=== PATIENT | male | born 1985 | race Caucasian/White ===

== ENCOUNTER 2022-08-08 03:12 | Emergency (ER) | payer MEDICAID, SELFPAY ==
--- NOTE | ~2022-08-08 | CT_ITS ---
EXAMINATION: CT ABDOMEN AND PELVIS WITHOUT CONTRAST CLINICAL INFORMATION: Left-sided pain. Question stone. COMPARISON: 12/10/2018 TECHNIQUE: Multidetector volumetric imaging was performed from the superior aspect of the liver through the pubic symphysis. Sagittal and coronal reformatted images were obtained on the technologist's workstation. This CT examination was performed using dose optimization techniques as appropriate, variously including the following: *Automated exposure control *Adjustment of mA and/or kV according to patient size (this includes techniques or standardized protocols for targeted exams where dose is matched to indication/reason for exam; i.e. extremities or head) *Use of iterative reconstruction technique DLP: 535 mGy-cm FINDINGS: LUNG BASES: The visualized lung bases are unremarkable. LIVER, GALLBLADDER, AND BILIARY TREE: The liver is normal in size, shape, and attenuation. No focal hepatic lesion or biliary ductal dilatation is present. The gallbladder is unremarkable with no evidence of radiopaque gallstones, gallbladder wall thickening, or obvious pericholecystic inflammatory changes. PANCREAS: Unremarkable. SPLEEN: Unremarkable. ADRENAL GLANDS: Unremarkable. KIDNEYS AND URETERS: The kidneys are normal in size, shape, and attenuation. Minimal left hydroureter. No significant hydronephrosis. A punctate 1 mm calculus is present within an upper pole calyx of the right kidney. No perinephric stranding. BLADDER: There is a 3 mm calculus at the left ureterovesical junction. Bladder is otherwise unremarkable GASTROINTESTINAL TRACT: Stomach, small bowel, and colon are normal in caliber. No bowel wall thickening or surrounding inflammatory changes. Intramural fat deposition is seen within multiple segments of the colon small bowel. This appearance is not specific and often asymptomatic, though can be associated with chronic changes of inflammation. Appendix is normal. No intraperitoneal free fluid or free air. ABDOMINAL WALL: No significant hernia is appreciated. LYMPH NODES: There are numerous subcentimeter mesenteric lymph nodes in the central abdomen and right lower quadrant, measuring up to 9 mm in diameter. No significant retroperitoneal adenopathy. VASCULAR: Unremarkable. PELVIC VISCERA: The prostate and seminal vesicles are unremarkable. OSSEOUS STRUCTURES: Mild degenerative disc disease in the lower lumbar spine. No acute osseous findings. CT/CT abdomen pelvis wo IV con IMPRESSION: A 3 mm calculus at the left ureterovesical junction produces mild left hydroureter. Fleischner guidelines were followed.
[2022-08-08 03:18] VITALS: BP 112/70; BP 126/77; PULSE 61; PULSE 70; RESP 16; TEMP 36.4; O2SAT 98; O2SAT 99; BMI 25.0
[2022-08-08 03:30] LABS: Hematocrit 46.5 % (42.0-52.0); Hemoglobin 14.9 g/dl (14.0-18.0); Mean Corpuscular Hemoglobin 24.9 pg (27.0-33.0); Mean Corpuscular Volume 77.8 fL (80.0-98.0); Mean Platelet Volume 8.4 fL (9.4-12.4); Platelet Count 293 X10*3/uL (160-400); Red Blood Count 5.98 X10*6/uL (4.60-5.80); Red Cell Distribution Width 13.8 % (11.0-16.0); White Blood Count 11.5 X10*3/uL (4.8-10.8)
--- NOTE | 2022-08-08 03:43 | ED.ABDPAIN ---
HPI - Abdominal Pain General Chief Complaint: Abdominal Pain Stated Complaint: abd pain Time Seen by Provider: 08/08/22 03:43 Source: patient Mode of arrival: ambulatory Limitations: no limitations History of Present Illness HPI narrative: Patient is 87 years old with no significant past medical history noticed sudden onset of pain in left upper quadrant just prior to arrival woke him up from the sleep associated with nausea no vomiting family history of kidney stone in the father patient never had kidney stone no urinary complaints no fever no chills Related Data Previous Rx's Medication Instructions Recorded oxycodone 5 mg tablet 5 mg PO Q6H PRN pain #20 tabs 08/08/22 tamsulosin 0.4 mg capsule (Flomax) 0.4 mg PO BEDTIME #7 caps 08/08/22 Allergies Allergy/AdvReac Type Severity Reaction Status Date / Time No Known Allergies Allergy Unverified 06/07/20 16:13 [No Known Allergies*] Review of Systems Review of Systems Yes all other systems are reviewed and are negative [facility] Social History Social History Smoked in Last 30 Days: No Use of substances other than those prescribed or required for medical reasons: No Advance Directives: No Advance Directives Information Provided: Yes Physical Exam ED Vital Signs: Vital Signs - 24 hr 08/08/22 03:18 08/08/22 03:46 08/08/22 06:14 Temperature 97.6 F 98.7 F 98.7 F Pulse Rate 61 58 61 Respiratory Rate 16 18 18 Blood Pressure 126/77 103/70 116/71 Pulse Oximetry 98 96 96 Oxygen Delivery Method Room Air Room Air BMI result Body Mass Index 25.0 Appearance: Alert. Oriented X3. No acute distress. Eyes: PERRLA, No Nystagmus ENT: Pharynx normal. Oral Mucosa moist Neck: Normal inspection. Neck supple. CVS: Normal heart rate and rhythm. Pulses normal. Respiratory: No respiratory distress. Equal air entry bilateral, no wheezing/rales/rhonchi Abdomen: Soft , dependence the left upper quadrant no rebound tenderness or guarding Bowel sounds are present, no mass palpable, no CVA tenderness Skin: Skin warm and dry. Normal skin color. Normal skin turgor. Extremities: No lower extremity edema. No calf tenderness Neuro: Oriented X 3. No motor deficit. Medications Administered Discontinued Medications Generic Name Dose Route Start Last Admin Trade Name Oxana PRN Reason Stop Dose Admin Sodium Chloride 1,000 mls @ 999 mls/hr 08/08/22 04:02 08/08/22 05:48 Ns IV 08/08/22 05:02 Infused .Q1H1M ONE Infusion Sodium Chloride 1,000 mls @ 999 mls/hr 08/08/22 05:35 08/08/22 05:47 Ns IV 08/08/22 06:35 999 mls/hr .Q1H1M ONE Administration Ketorolac Tromethamine 30 mg 08/08/22 04:02 08/08/22 04:14 Ketorolac Tromethamine 30 Mg/Ml Vial IVPUSH 08/08/22 04:03 30 mg ONCE ONE Administration Morphine Sulfate 4 mg 08/08/22 05:35 08/08/22 05:48 Morphine Sulfate 4 Mg/Ml Cartridge IVPUSH 08/08/22 05:36 4 mg ONCE ONE Administration Protocol Ondansetron HCl 4 mg 08/08/22 04:02 08/08/22 04:15 Ondansetron Hcl 4 Mg/2 Ml Vial IVPUSH 08/08/22 04:03 4 mg ONCE ONE Administration Tamsulosin HCl 0.4 mg 08/08/22 05:35 08/08/22 05:48 Tamsulosin Hcl 0.4 Mg Capsule PO 08/08/22 05:36 0.4 mg ONCE ONE Administration MDM - Abdominal Pain MDM Narrative Medical decision making narrative: Patient left upper quadrant pain with family history of kidney stones sudden onset sharp in nature with nausea likely kidney stone will get CT abdomen rule out obstructive kidney stone Patient's CT scan showed: 3 mm calculus at the left ureterovesical junction produces mild left hydroureter Patient still having pain will give IV morphine Flomax and another L bolus Differential Diagnosis Differential diagnosis: Likely calculus of kidney Lab Data Result diagrams: 08/08/22 03:25 08/08/22 03:25 Labs: Lab Results 08/08/22 08/08/22 Range/Units 03:25 03:25 WBC 11.5 H (4.8-10.8) X10*3/uL RBC 5.98 H (4.60-5.80) X10*6/uL Hgb 14.9 (14.0-18.0) g/dl Hct 46.5 (42.0-52.0) % MCV 77.8 L (80.0-98.0) fL MCH 24.9 L (27.0-33.0) pg MCHC 32.0 (31.0-36.0) g/dl RDW 13.8 (11.0-16.0) % Plt Count 293 (160-400) X10*3/uL MPV 8.4 L (9.4-12.4) fL Absolute Nucleated RBC 0.000 (0.0-0.012) X10*3/uL Nucleated RBC % (auto) 0.0 (0.0-0.2) /100WBC Sodium 140 (135-145) mmol/L Potassium 4.0 (3.3-5.1) mmol/L Chloride 101 (96-108) mmol/L Carbon Dioxide 25 (22-29) mmol/L Anion Gap 18 (12-20) BUN 15 (9-16) mg/dL Creatinine 1.10 (0.5-1.4) mg/dL Estim Creat Clear Calc 98.8 Estimated GFR > 60 Random Glucose 131 H (60-115) mg/dL Calcium 9.3 (8.4-10.2) mg/dL Total Bilirubin 0.6 (0.0-1.0) mg/dL Direct Bilirubin 0.2 (0.0-0.5) mg/dL AST 18 (5-37) U/L ALT 29 (0-40) U/L Alkaline Phosphatase 168 H (39-117) U/L Total Protein 7.2 (6.5-8.0) g/dL Albumin 4.5 (3.5-5.0) g/dL Lipase 27 (8-78) U/L Discharge Plan Discharge Clinical Impression: Calculus of kidney Patient Disposition: Home, Self-Care Instructions: Kidney Stones (ED) Additional Instructions: Drink plenty of fluids Pain medication advised Flomax daily til you have pain Follow-up with urologist/PCP Prescriptions: New oxycodone 5 mg tablet 5 mg PO Q6H PRN (Reason: pain) Qty: 20 0RF Rx Instructions: Partial Fill upon patient request. tamsulosin [Flomax] 0.4 mg capsule 0.4 mg PO BEDTIME Qty: 7 0RF Referrals: Joss Rodriguez MD [Physician] - 3 days
[2022-08-08 03:46] VITALS: BP 103/70; PULSE 58; RESP 18; TEMP 37.1; O2SAT 96
[2022-08-08 03:58] LABS: Alanine Aminotransferase 29 U/L (0-40); Albumin Level 4.5 g/dL (3.5-5.0); Alkaline Phosphatase 168 U/L (39-117); Anion Gap 18 (12-20); Aspartate Amino Transferase 18 U/L (5-37); Bilirubin Direct 0.2 mg/dL (0.0-0.5); Bilirubin Total 0.6 mg/dL (0.0-1.0); Blood Urea Nitrogen 15 mg/dL (9-16); Calcium 9.3 mg/dL (8.4-10.2); Carbon Dioxide 25 mmol/L (22-29); Chloride 101 mmol/L (96-108); Creatinine Clr Calc Pharmacy 98.8; Estimated Glomerular Filt Rate > 60; Glucose Random 131 mg/dL (60-115); Sodium 140 mmol/L (135-145); Total Protein 7.2 g/dL (6.5-8.0)
[2022-08-08 04:06] LABS: Lipase 27 U/L (8-78)
[2022-08-08] MEDS: 0.9 % Sodium Chloride 1,000 ML 999 ML IV ×2 (04:14→05:47)
[2022-08-08] MEDS: Ketorolac Tromethamine 30 MG/ML VIAL IVPUSH (04:14)
[2022-08-08] MEDS: ondansetron HCL 4 MG/2 ML VIAL IVPUSH (04:15)
[2022-08-08] MEDS: Morphine Sulfate 4 MG/ML CARTRIDGE IVPUSH (05:48)
[2022-08-08] MEDS: Tamsulosin HCL 0.4 MG CAPSULE PO (05:48)
[2022-08-08 06:14] VITALS: BP 116/71; PULSE 61; RESP 18; TEMP 37.1; O2SAT 96
[2022-08-08] MEDS: oxyCODONE HCl Immed Release 5 MG TABLET 10 MG PO (06:52)
[2022-08-08 07:00] VITALS: BP 101/66; PULSE 63; RESP 14; TEMP 36.6; O2SAT 98
[2022-08-08 07:21] LABS: Appearance Urine Turbid; Color Urine Orange; Glucose Urine UA Negative (Negative); Leukocyte Esterase Urine Small (1+) (Negative); Nitrite Urine Negative (Negative); PH 5.5 (5.0-9.0); Specific Gravity - Urine >= 1.030 (1.005-1.025); UMIC TRIGGER UACC YES; Urine Blood Large (3+) (Negative); Urine Ketones 80 mg/dL (Negative); Urine Protein 100 (2+) mg/dL (Neg-Trace)
[2022-08-08 07:31] LABS: Bacteria Urine Trace (None Seen); Hyaline Casts Urine 0-2 /LPF (0-2); RBC Urine >20 /HPF (0-2); UACC Culture Trigger YES
== END 2022-08-08 07:23 | disposition home or self-care (01) ==
PROVIDERS: Emergency Provider Internal Medicine
DX: N20.0 Calculus of kidney (principal); R10.12 Left upper quadrant pain; Z79.899 Other long term (current) drug therapy
CPT/HCPCS: 36415; 74176; 80048; 80076; 81001; 83690; 85027; 87086; 96361; 96374; 96375; 99284; 99285; J1885; J2270; J2405

== ENCOUNTER 2024-07-28 09:21 | Outpatient (REF) | payer MEDICAID, SELFPAY ==
[2024-07-28 11:21] LABS: MANUAL DIFF FLAG NO
[2024-07-28 11:34] LABS: Basophils Absolute Auto 0.1 X10*3/uL (0.0-0.2); Basophils Percent Auto 1.5 % (0-2); Eosinophils Absolute Auto 0.2 X10*3/uL (0.0-0.4); Eosinophils Percent Auto 2.9 % (0-4); Hematocrit 46.6 % (42.0-52.0); Hemoglobin 14.8 g/dl (14.0-18.0); Imm Gran Abs Auto 0.01 X10*3/uL (0.00-0.03); Imm Gran Pct Auto 0.1 % (0.0-0.4); Lymphocytes Absolute Auto 3.2 X10*3/uL (1.2-4.9); Lymphocytes Percent Auto 45.8 % (20-40); Mean Corpuscular HGB Conc 31.8 g/dl (31.0-36.0); Mean Corpuscular Hemoglobin 25.4 pg (27.0-33.0); Mean Corpuscular Volume 80.1 fL (80.0-98.0); Mean Platelet Volume 9.7 fL (9.4-12.4); Monocytes Absolute Auto 0.5 X10*3/uL (0.1-1.2); Monocytes Percent Auto 7.3 % (2-11); Neutrophils Absolute Auto 2.9 x10*3/uL (2.0-8.3); Neutrophils Percent Auto 42.4 % (45-73); Platelet Count 307 X10*3/uL (160-400); Red Blood Count 5.82 X10*6/uL (4.60-5.80); Red Cell Distribution Width 13.8 % (11.0-16.0); White Blood Count 6.9 X10*3/uL (4.8-10.8)
[2024-07-28 12:02] LABS: Alanine Aminotransferase 74 U/L (0-40); Albumin Level 4.3 g/dL (3.5-5.0); Alkaline Phosphatase 126 U/L (39-117); Anion Gap 15 (12-20); Aspartate Amino Transferase 31 U/L (5-37); Bilirubin Total 0.4 mg/dL (0.0-1.0); Blood Urea Nitrogen 17 mg/dL (9-16); Calcium 9.7 mg/dL (8.4-10.2); Carbon Dioxide 25 mmol/L (22-29); Chloride 105 mmol/L (96-108); Cholesterol 175 mg/dL (<200); Estimated Glomerular Filt Rate > 60; Glucose Random 124 mg/dL (60-115); HDL Cholesterol 34 mg/dL (>40); LDL Cholesterol Calculated 112 mg/dL (<100); Potassium 3.8 mmol/L (3.3-5.1); Sodium 141 mmol/L (135-145); Total Protein 7.1 g/dL (6.5-8.0); Triglycerides 145 mg/dL (<150)
[2024-07-28 12:03] LABS: HBS Num1 419.26 mIU/mL (0-7.99); HBc Num1 0.08 S/CO (0.00-0.79); HBsAGNum1 0.31 S/CO (0.00-0.99); HIV AB/AG Nonreactive (Nonreactive); HIV Num 1 0.07 S/CO (0.00-0.99); Hepatitis A Antibody IgM 0.18 Index (0-0.79); Hepatitis B Core Antibody Nonreactive (Nonreactive); Hepatitis B Surface Antigen Negative (Negative); ~HepC Num1 0.07 S/CO (0.00-0.79); ~Hepatitis A Antibody IgM Nonreactive (Nonreactive); ~Hepatitis B Surface Antibody REACTIVE (Nonreactive); ~Hepatitis C Antibody Nonreactive (Nonreactive)
[2024-07-28 12:10] LABS: Syphilis Screen Nonreactive (Nonreactive)
[2024-07-28 12:23] LABS: TSH reflex Free T4 2.26 uIU/mL (0.32-4.0)
[2024-07-28 13:54] LABS: Reflex LDLD? No
== END 2024-07-28 09:22 | disposition home or self-care (01) ==
LOC: HO.HHCL 09:21
PROVIDERS: Visit Provider Internal Medicine
DX: E66.3 Overweight (principal); J45.20 Mild intermittent asthma, uncomplicated; Z11.3 Encounter for screening for infections with a predominantly sexual mode of transmission
CPT/HCPCS: 36415; 80053; 80061; 84443; 85025; 86704; 86706; 86709; 86780; 86803; 87340; 87389

== ENCOUNTER 2025-06-04 12:56 | Observation (INO) | payer MEDICAID, SELFPAY ==
[2025-06-04] VITALS (10 sets, daily range): BP systolic 101–127; BP diastolic 61–83; PULSE 72–103; RESP 14–24; TEMP 36.1–37.1; O2SAT 96–100; BMI 23.8
--- NOTE | ~2025-06-04 | CT_ITS ---
CLINICAL HISTORY: right flank pain hx stones CT abdomen and pelvis without contrast Comparison: CT/REG/SR - CT ABDOMEN PELVIS WITHOUT IV CONTRAST - 08/08/22 04:30 EST Findings: The lung bases are clear. Gynecomastia. Right hydronephrosis and proximal right hydroureter with proximal right ureter obstructing nephrolith, 0.3 cm, axial image number 58 of 119. No bowel obstruction, pneumoperitoneum, or pneumatosis. The prostate is within normal limits. The appendix is within normal limits. No acute fracture. Mild osteopenia. IMPRESSION: 1. Right hydronephrosis and proximal right hydroureter with obstructing 0.3 cm in the proximal right ureteral nephrolith. 2. Gynecomastia. This document has been electronically signed by: Barron Smith MD on 06/04/2025 16:20:04
--- NOTE | ~2025-06-04 | FL_ITS ---
EXAMINATION: FL GUIDANCE ONLY HISTORY: STENT RIGHT COMPARISON: Correlation is made with a CT of the abdomen and pelvis without contrast dated 06/04/2025. TECHNIQUE: Fluoroscopy time: 0.7 minutes. Cumulative Dose: 8.64 mGy. DAP: 2.35 mGym2 Images: 6. FINDINGS: Fluoroscopic spot films of the right abdomen demonstrate placement of a nephroureteral stent. FL/FL guidance in OR IMPRESSION: Fluoroscopy during procedure. Please see procedure report for additional information. Electronically signed by: Pino Thompson MD 06/06/2025 07:01 AM EDT
--- NOTE | 2025-06-04 13:03 | ED_ITS ---
HPI - General Adult General Chief complaint: Abdominal Pain Stated complaint: Kidney stones? Time Seen by Provider: 06/04/25 14:03 Source: patient Mode of arrival: ambulatory Limitations: no limitations History of Present Illness ED Provider: JOVANNA COOK PA-C HPI narrative: 40 yo M with PMH of nephrolithiasis (2021) presents to ED today for evaluation of epigastric abdominal pain on waking this morning. Reports being ill with flu-like symptoms x2-3 weeks and as a result, has had decreased PO intake. Reports eating soup prior to bed last night. Woke up with sharp pain to epigatric region wrapping around to his right flank. Admits to associated nausea, vomiting with bilious emesis, subjective fever, chills, and malaise. Denies chest pain, urinary sx, blood in emesis or stool. He has not trialed any OTC pain meds. Admits to history of renal stones approx 1 year ago and states this feels similar. He did not require lithotripsy or stent placement. He has not followed up with urology outpatient since. Denies etoh consumption. Denies history of abdominal surgeries. Related Data Previous Rx's ?Medication ?Instructions ?Recorded oxycodone 5 mg tablet 5 mg PO Q6H PRN pain #20 tab s 08/08/22 tamsulosin 0.4 mg capsule (Flomax) 0.4 mg PO BEDTIME # 7 caps 08/08/22 Allergies Allergy/AdvReac Type Severity Reaction Status Date / Time No Known Allergies (No Known Allergy Verified 06/04/25 13:03 Allergies*) Review of Systems 2 Review of Systems: Yes all other systems are reviewed and are negative [facility] Past Medical History Attestation statement: The following information was validated with the patient. Source: old records reviewed and nursing notes reviewed Social History Social History Advance Directives: No Advance Directives Information Provided: No Physical Exam ED Vital Signs: Vital Signs - 24 hr 06/04/25 13:01 06/04/25 14:25 06/04/25 17:16 Temperature 97.0 F Pulse Rate 103 H 96 81 Respiratory Rate 18 24 H 19 Blood Pressure 119/69 114/65 116/67 Pulse Oximetry 96 100 100 Oxygen Delivery Method Room Air Room Air Room Air Oxygen Flow Rate 06/04/25 17:35 06/04/25 17:38 06/04/25 17:39 Temperature 98.7 F Pulse Rate 73 83 Respiratory Rate 17 17 14 Blood Pressure 127/81 127/81 Pulse Oximetry 96 Oxygen Delivery Method Nasal Cannula Oxygen Flow Rate 2 BMI result Body Mass Index 23.8 tachycardic, afebrile General: uncomfortable appearing, curled up in a ball on the stretcher, bag of bilious emesis noted on bed Skin: Warm, dry, intact. No rashes or lesions. Head: Normocephalic, atraumatic. EENT: Hearing is intact b/l. Conjunctiva clear. Sclera is anicteric. PERRLA. EOM intact. Moist mucous membranes.? Neck: Supple without LAD Cardiac: Chest wall symmetric. RRR Lungs: Normal respiratory effort without accessory muscle use. CTA bilaterally Abdomen: soft, ND, ttp of epigastric region/RUQ. no rebound/guarding. no cvat. active bs x4. Back: No midline spinous or paraspinal tenderness. No step off deformity. Ext: Upper and lower extremities atraumatic, without tenderness, deformity, swelling or erythema Course Course Course Narrative: Rapid medical examination performed in triage by Kelly Florian PA-C. Patient is a 40 year old assigned male at presenting to the emergency department with right sided flank pain. Patient states he has a history of stones and this feels like it may be that. Detailed physical exam and review of systems are deferred to the primary school principal. Labs ordered. Patient placed back in the waiting room pending room availability and results. Reevaluation(s) Reevaluation #1: 1529 -- CBC showing leukocytosis to 11.5 without left shift. H&H stable. Chemistry without acute electrolyte abnormality requiring intervention. No KARINE. Glucose 150, no anion gap. Liver function appears to be around patient's baseline. Lipase WNL at 25. > UA and CT a/p pending > medicated with toradol, morphine, zofran, and IVF > stable at this time 1713 -- patient continues to endorse 8/10 pain. Will trial morphine. > CT abdomen/pelvis shows right hydronephrosis and proximal right hydroureter with obstructing 3 mm stone to proximal right ureter > UA is infected - ceftriaxone ordered. > will discuss with urology. I anticipate admission to medicine if patient's pain continues to be poorly controlled. [id number] -- patient now requiring dilaudid for pain control. no further recommendations per urology. will reach out to hospitalist for admission. patient/ mother who is at bedside are agreeable. Medications Administered Discontinued Medications Generic Name Dose Route Start Last Admin Trade Name Freq PRN Reason Stop Dose Admin Ceftriaxone Sodium 1 gm 06/04/25 16:42 06/04/25 17:15 Ceftriaxone Sodium 1 Gm Vial IVPUSH 06/04/25 16:43 1 gm ONCE ONE Administration Hydromorphone HCl 1 mg 06/04/25 17:29 06/04/25 17:35 Hydromorphone Hcl 1 Mg/Ml Syringe IVPUSH 06/04/25 17:30 1 mg ONCE ONE Administration Protocol Sodium Chloride 1,000 mls @ 999 mls/hr 06/04/25 14:15 06/04/25 15:32 Ns IV 06/04/25 15:15 Infused .Q1H1M SARAH Infusion Ketorolac Tromethamine 30 mg 06/04/25 14:12 06/04/25 14:23 Ketorolac Tromethamine 30 Mg/Ml Vial IVPUSH 06/04/25 14:13 30 mg ONCE ONE Administration Morphine Sulfate 4 mg 06/04/25 14:28 06/04/25 14:34 Morphine Sulfate 4 Mg/Ml Cartridge IVPUSH 06/04/25 14:29 4 mg ONCE ONE Administration Protocol Morphine Sulfate 4 mg 06/04/25 16:56 06/04/25 17:04 Morphine Sulfate 4 Mg/Ml Cartridge IVPUSH 06/04/25 16:57 4 mg ONCE ONE Administration Protocol Ondansetron HCl 4 mg 06/04/25 14:12 06/04/25 14:23 Ondansetron Hcl 4 Mg/2 Ml Vial IVPUSH 06/04/25 14:13 4 mg ONCE ONE Administration Medical Decision Making Medical Decision Making MDM Narrative: 40 yo M with PMH of nephrolithiasis (2021) presents to ED today for evaluation of epigastric abdominal pain on waking this morning. on arrival patient is tachycardic, afebrile. he is uncomfortable appearing, curled up in a ball on the stretcher. on exam, abdomen is soft, ND, ttp of epigastric region/RUQ. no rebound/guarding. no cvat. active bs x4. Differential diagnosis includes biliary colic, renal colic, nephrolithiasis, gastroenteritis, gastritis, PUD. Abdominal exam without peritoneal signs. No evidence of acute abdomen at this time. Well appearing. Moderate suspicion for acute hepatobiliary disease (including acute cholecystitis). Less likely to represent acute pancreatitis, perforated ulcer/ GI bleed, acute infectious processes (pneumonia, hepatitis, pyelonephritis), atypical appendicitis, vascular catastrophe, bowel obstruction or viscus perforation. Presentation not consistent with other acute, emergent causes of abdominal pain at this time. Plan: labs, UA, pain control, CT, serial reassessment Differential Diagnosis Differential Diagnoses: The differential diagnosis associated with the presentation includes as above Admission/Observation Consideration of admission/observation: Escalation of care including admission/observation considered patient to be admitted to medicine for pain control secondary to proximal ureteral stone + UTI. Consult Healthcare Provider Management of the patient was discussed with: Hospitalist (arlen law) and [employer] Block Setter (dr. thornton urologist) Lab Data MDM Lab Attestation statement: I reviewed the patient's lab results. as above. 06/04/25 13:18 06/04/25 13:18 Labs: Lab Results 06/04/25 06/04/25 Range/Units 13:18 16:34 WBC 11.5 H (4.8-10.8) X10*3/uL RBC 6.17 H (4.60-5.80) X10*6/uL Hgb 15.6 (14.0-18.0) g/dl Hct 46.5 (42.0-52.0) % MCV 75.4 L (80.0-98.0) fL MCH 25.3 L (27.0-33.0) pg MCHC 33.5 (31.0-36.0) g/dl RDW 12.9 (11.0-16.0) % Plt Count 419 H D (160-400) X10*3/uL MPV 8.6 L (9.4-12.4) fL Immature Gran % (Auto) 0.3 (0.0-0.4) % Neut % (Auto) 51.0 (45-73) % Lymph % (Auto) 36.7 (20-40) % [place] % (Auto) 8.4 (2-11) % Eos % (Auto) 2.7 (0-4) % Baso % (Auto) 0.9 (0-2) % Lymph # (Auto) 4.2 (1.2-4.9) X10*3/uL [place] # (Auto) 1.0 (0.1-1.2) X10*3/uL Eos # (Auto) 0.3 (0.0-0.4) X10*3/uL Baso # (Auto) 0.1 (0.0-0.2) X10*3/uL Abs Immat Gran (auto) 0.03 (0.00-0.03) X10*3/uL Absolute Neuts (auto) 5.9 (2.0-8.3) x10*3/uL Absolute Nucleated RBC 0.000 (0.0-0.012) X10*3/uL Nucleated RBC % (auto) 0.0 (0.0-0.2) /100WBC Sodium 139 (135-145) mmol/L Potassium 3.9 (3.3-5.1) mmol/L Chloride 103 (96-108) mmol/L Carbon Dioxide 22 (22-29) mmol/L Anion Gap 18 (12-20) BUN 12 (9-16) mg/dL Creatinine 0.98 (0.5-1.4) mg/dL Estim Creat Clear Calc 107.7 Estimated GFR > 60 Random Glucose 150 H (60-115) mg/dL Calcium 9.6 (8.4-10.2) mg/dL Magnesium 1.9 (1.6-2.6) mg/dL Total Bilirubin 0.7 (0.0-1.0) mg/dL AST 28 (5-37) U/L ALT 19 (0-40) U/L Alkaline Phosphatase 157 H (39-117) U/L Total Protein 7.8 (6.5-8.0) g/dL Albumin 4.6 (3.5-5.0) g/dL Lipase 25 (8-78) U/L Urine Color Other A Urine Appearance Cloudy Urine pH 6.5 (5.0-9.0) Ur Specific [place] >= 1.030 H (1.005-1.025) Urine Protein 300 (3+) H (Neg-Trace) mg/dL Urine Glucose (UA) Negative (Negative) mg/dL Urine Ketones >=80 (Negative) mg/dL Urine Blood Large (3+) H (Negative) Urine Nitrite Positive H (Negative) Ur Leukocyte Esterase Trace H (Negative) Urine RBC >20 H (0-2) /HPF Urine WBC 0-5 (0-5) /HPF Ur Squamous Epith Cells 3-5 (0-2) /HPF Calcium Oxalate Crystal Present Urine Bacteria None Seen (None Seen) Hyaline Casts 11-20 (0-2) /LPF Independent Interpretation I performed an independent interpretation of an: CT Scan Interpretation: ct a/p showing right hydroureter nephrosis Radiology Impression Discussion of test interpretation with radiology: I have reviewed the radiologist's reading. Radiologist Impression: Date of Service: 06/04/25 Procedure(s): CT abdomen pelvis wo IV con Accession Number(s): [id number] cc: [facility]; Jovanna Cook MS~ Report Number: [id number]: Total DLP = 522.00 mGy-cm Reason for Exam: right flank pain hx stones ADDENDUMThis document has been electronically signed by: Barron Smith MD on 06/04/2025 16:20:04 ADDENDUM: This report was discussed with Joey Nugent on Jun 04, 2025 16:30:00 EDT. This document has been electronically signed by: Antonio Wu on 06/04/2025 16:30:56 Addendum Dictated By: Barron Smith MD Addendum Signed By: <Electronically signed by Barron Smith MD in [place]> 06/04/25 1631 Addendum Cosigned By: DD/ TD/TT: 06/04/25 CLINICAL HISTORY: right flank pain hx stones CT abdomen and pelvis without contrast Comparison: CT/REG/SR - CT ABDOMEN PELVIS WITHOUT IV CONTRAST - 08/08/22 04:30 EST Findings: The lung bases are clear. Gynecomastia. Right hydronephrosis and proximal right hydroureter with proximal right ureter obstructing nephrolith, 0.3 cm, axial image number 58 of 119. No bowel obstruction, pneumoperitoneum, or pneumatosis. The prostate is within normal limits. The appendix is within normal limits. No acute fracture. Mild osteopenia. IMPRESSION: 1. Right hydronephrosis and proximal right hydroureter with obstructing 0.3 cm in the proximal right ureteral nephrolith. 2. Gynecomastia. This document has been electronically signed by: Barron Smith MD on 06/04/2025 16:20:04 Independent Historian Clinical information obtained from an independent historian. History obtained from or confirmed by: Parent External Record Review External record reviewed: Inpatient record Prescription Management I considered prescription management with: Pain Medication and Antibiotic Chronic Conditions Patient?s care impacted by: Other (nephrolithiasis) Social Determinants Patient?s care significantly limited by Social Determinants of Health including: Other Social Determinant of Health Critical Care Time Critical Care Time Critical Care Time: Yes Total Critical Care Time: 45 Attestation: Critical care time in the amount of 45 minutes has been provided to the patient in terms of direct patient care, frequent reevaluation on IV morphine and dilaudid, consultation with urology/ hospitalist, review and interpretation of medical data and results, and management of potentially life-threatening conditions. This is all outside of any medical procedures. Discharge Plan Discharge Clinical Impression: Calculus of proximal right ureter, Hydroureteronephrosis, Acute UTI Patient Disposition: Admitted As Inpatient Print Language: Lao
[2025-06-04 13:31] LABS: MANUAL DIFF FLAG NO
[2025-06-04 13:32] LABS: Hematocrit 46.5 % (42.0-52.0); Hemoglobin 15.6 g/dl (14.0-18.0); Imm Gran Abs Auto 0.03 X10*3/uL (0.00-0.03); Imm Gran Pct Auto 0.3 % (0.0-0.4); Lymphocytes Absolute Auto 4.2 X10*3/uL (1.2-4.9); Mean Corpuscular HGB Conc 33.5 g/dl (31.0-36.0); Mean Corpuscular Hemoglobin 25.3 pg (27.0-33.0); Mean Corpuscular Volume 75.4 fL (80.0-98.0); NRBC Abs Auto 0.000 X10*3/uL (0.0-0.012); NRBC Pct Auto 0.0 /100WBC (0.0-0.2); Platelet Count 419 X10*3/uL (160-400); Red Blood Count 6.17 X10*6/uL (4.60-5.80); White Blood Count 11.5 X10*3/uL (4.8-10.8)
[2025-06-04 13:58] LABS: Alanine Aminotransferase 19 U/L (0-40); Albumin Level 4.6 g/dL (3.5-5.0); Alkaline Phosphatase 157 U/L (39-117); Anion Gap 18 (12-20); Aspartate Amino Transferase 28 U/L (5-37); Blood Urea Nitrogen 12 mg/dL (9-16); Calcium 9.6 mg/dL (8.4-10.2); Carbon Dioxide 22 mmol/L (22-29); Chloride 103 mmol/L (96-108); Creatinine Clr Calc Pharmacy 107.7; Estimated Glomerular Filt Rate > 60; Magnesium 1.9 mg/dL (1.6-2.6); Potassium 3.9 mmol/L (3.3-5.1); Sodium 139 mmol/L (135-145); Total Protein 7.8 g/dL (6.5-8.0)
--- OUTSIDE RECORDS SUMMARY | 2025-06-04 14:20 | XMS_ITS | Clinical Summary ---
Author Organization [employer] Address [address] [facility] 7[address] [place] [address] Care Team Providers Care Equipment Planner Name Role Phone Melissa Edwards MD Primary Care Provider + Allergies No known active allergies Medications * This document contains information received from the source organization and may not represent a complete record from that organization. albuterol 108 (90 Base) MCG/ACT inhaler Inhale 2 puffs every 6 (six) hours if needed for wheezing. 18 g 07/18/2024 Active Active Problems Problem Noted Date Diagnosed Date Uncomplicated opioid dependence 09/23/2024 Assessment & Plan (09/23/2024 4:21 PM EST): Doing well on Suboxone.\ FU at [facility]. Order HIV/hepatitis profile Overweight (BMI 25.0-29.9) 07/18/2024 Mild intermittent asthma without complication Assessment & Plan (09/23/2024 4:19 PM EST): Well controlled, continue albuterol inh prn only Agreed to Influenza IZ, declined covid booster. Encounters Date Type Department Care Team Description 06/04/2025 Orders Only GENERIC EXTERNAL DATA DEPARTMENT Provider, Generic External Data from Last 3 Months Immunizations Immunization Administration Dates Next Due Influenza, seasonal, injectable, preservative fr ee 07/18/2024 Family History Medical History Relation Name Comments Diabetes Father htn Father Diabetes Mother Heart failure Mother htn Mother Relation Name Status Comments Father Mother Social History Tobacco Use Types Packs/Day Years Used Date Smoking Tobacco: Never Smokeless Tobacco: Never Alcohol Use Standard Drinks/Week Comments Never 0 (1 standard drink = 0.6 oz pur e alcohol) Depression Answer Date Recorded Patient Health Questionnaire-9 Score 22 07/18/2024 Patient Health Questionnaire-9 Score 22 07/18/2024 Last PHQ-9: Questionnaire Data Not on file 1 Housing Stability Answer Date Recorded What is your housing situation today? I have juani prince 07/18/[address] you li ve. Do you have problems with any of the following? None of the above 07/18/2024 Food Insecurity Answer Date Recorded Within the past 12 months, y ou worried that your food would run out before you got money to buy more: Never True 07/18/2024 Within the past 12 months,th e food you bought just didn't last and you didn't have enough money to get more: Never True Transportation Answer Date Recorded In the past 12 months, has l ack of transportation kept you from medical appts, meetings, work or from getting things needed for daily living? No 07/18/2024 Utilities Answer Date Recorded In the past 12 months, has t he electric, gas, oil or water company threatened to shut off services in your home? No 07/18/2024 Depression Answer Date Recorded Patient Health Questionnaire-2 Score 6 07/18/2024 Internet Access Answer Date Recorded Internet Access Q1 No 07/18/2024 Internet Access Q2 I do not want or need it 06/22 Sex and Gender Information Value Date Recorded Sex Assigned at Male 05/21/2023 4:51 PM EDT Legal Sex Male 4:49 PM EDT Gender Identity Male 05/21/2023 4:51 PM EDT Sexual Orientation Don't know 05/21/2023 4: 51 PM EDT Last Filed Vital Signs Vital Sign Reading Time Taken Comments Blood Pressure 116/84 07/18/2024 2:49 PM EDT Pulse 72 07/18/2024 2:49 PM EDT Temperature 36.9 C (98.5 F) 07/18/2024 2:49 PM EDT Respiratory Rate 12 07/18/2024 2:49 PM EDT Oxygen Saturation - - Inhaled Oxygen Concentration - - Weight 84.6 kg (186 lb 8 oz) 07/18/2024 2:49 PM EDT Height 179.1 cm (5' 10.5 ) 07/18/2024 2:49 PM ED T Body Mass Index 26.38 07/18/2024 2:49 PM EDT Plan of Treatment Health Maintenance Due Date Last Done Comments Disability Screening 1986 Alcohol/Substance Use Screening 1998 Family Planning (PISQ) 2001 HPV Vaccines (1 - Male 3-dos e series) 2001 DTaP/Tdap/Td Vaccines (1 - Tdap) 2005 Hepatitis B Vaccines (1 of 3 - 19+ 3-dose series) 2005 Pneumococcal Vaccine: Pediatrics (0 to 5 Years) and At-Risk Patients (6 to 49) Years (1 of 2 - PCV) 2005 Depression Monitoring 01/16/2025 07/18/2024 , 07/18/2024 COVID-19 Vaccine (1 - 2023-2 5 season) 2025 Influenza Vaccine (#1) 2025 07/18/2024 SDOH Screening 07/18/2025 07/18/2024 Tobacco Screening 07/18/2025 07/18/2024 Lipid Panel 07/28/2029 07/28/2024 Zoster Vaccines (1 of 2) 2036 RSV Patients and Patients Aged 60 years or older (1 - 1-dose 75+ series) 2061 HIV Screening Completed 07/28/2024 Hepatitis C Screening Completed 07/28/2024 HIB Vaccines Aged Out No longer eligi ble based on patient's age to complete this topic Hepatitis A Vaccines Aged Out No long er eligible based on patient's age to complete this topic IPV Vaccines Aged Out No longer eligi ble based on patient's age to complete this topic Meningococcal B Vaccine Aged Out No l onger eligible based on patient's age to complete this topic Meningococcal Vaccine Aged Out No marcos yassine eligible based on patient's age to complete this topic RSV under 20 months Aged Out No longe r eligible based on patient's age to complete this topic Rotavirus Vaccines Aged Out No longer eligible based on patient's age to complete this topic Procedures Procedure Name Priority Date/Time Associated Diagnosis Comments MAGNESIUM Routine 06/04/2025 1:18 PM EDT COMPREHENSIVE METABOLIC PANEL Routine 06/04/2025 1:18 PM EDT CBC WITH AUTO DIFFERENTIAL Routine 06/04/2025 1:18 PM EDT HEPATITIS PANEL, GENERAL Routine 07/28/2024 9:25 AM EST Screening examination for STD (sexually transmitted disease) HIV 1/2 ANTIGEN/ANTIBODY, FOURTH GENERATION W/RFL Routine 07/28/2024 9:25 AM EST Screening examination for STD (sexually transmitted disease) LIPID PANEL WITH REFLEX TO DIRECT LDL Routine 07/28/2024 9:25 AM EST Overweight (BMI 25.0-29.9) from Last 3 Months or Most Recently Relevant to Health Maintenance Results * (ABNORMAL) CBC auto differential (06/04/2025 1:18 PM EDT) White Blood Count 11.5(H) 4.8 - 10.8 X10*3/uL [facility] Red Blood Count 6.17(H) 4.60 - 5.80 X10*6/uL [facility] Hemoglobin 15.6 14.0 - 18.0 g/dl [facility] Hematocrit 46.5 42.0 - 52.0 % [facility] Mean Corpuscular Volume 75.4(L) 80.0 - 98.0 fL [facility] Mean Corpuscular Hemoglobin 25.3(L) 27.0 - 33.0 pg [facility] Mean Corpuscular HGB Conc 33.5 31.0 - 36.0 g/dl [facility] Red Cell Distribution Width 12.9 11.0 - 16.0 % [facility] Platelet Count 419(H) 160 - 400 X10*3/uL [facility] Mean Platelet Volume 8.6(L) 9.4 - 12.4 fL [facility] Neutrophils Percent Auto 51.0 45 - 73 % [facility] Imm Gran Pct Auto 0.3 0.0 - 0.4 % [facility] Lymphocytes Percent Auto 36.7 20 - 40 % [facility] Monocytes Percent Auto 8.4 2 - 11 % [facility] Eosinophils Percent Auto 2.7 0 - 4 % [facility] Basophils Percent Auto 0.9 0 - 2 % [facility] NRBC Pct Auto 0.0 0.0 - 0.2 /100WBC [facility] Neutrophils Absolute Auto 5.9 2.0 - 8.3 x10*3/uL [facility] Imm Gran Abs Auto 0.03 0.00 - 0.03 X10*3/uL [facility] Lymphocytes Absolute Auto 4.2 1.2 - 4.9 X10*3/uL [facility] Monocytes Absolute Auto 1.0 0.1 - 1.2 X10*3/uL [facility] Eosinophils Absolute Auto 0.3 0.0 - 0.4 X10*3/uL [facility] Basophils Absolute Auto 0.1 0.0 - 0.2 X10*3/uL [facility] NRBC Abs Auto 0.000 0.0 - 0.012 X10*3/uL [facility] 06/04/2025 1:18 PM EDT 06/04/2025 1:30 PM EDT us Generic External Data Provider LAB BLOOD ORDERAB LES Final Result Performing Organization Address [facility]/ZIP Co de Phone Number [facility] [address] [place] [address] [phone] * Magnesium (06/04/2025 1:18 PM EDT) Magnesium 1.9 1.6 - 2.6 mg/dL [facility] 06/04/2025 1:18 PM EDT 06/04/2025 1:30 PM EDT Generic External Data Provider LAB BLOOD ORDERAB LES Final Result Performing Organization Address [facility]/ZIP Co de Phone Number [facility] [address] [place] [address] [phone] * (ABNORMAL) Comprehensive Metabolic Panel (06/04/2025 1:18 PM EDT) Sodium 139 135 - 145 mmol/L [facility] Potassium 3.9 3.3 - 5.1 mmol/L [facility] Comment:Slight Hemolysis.Int erpret result with caution. Chloride 103 96 - 108 mmol/L [facility] Carbon Dioxide 22 22 - 29 mmol/L [facility] Anion Gap 18 12 - 20 [facility] Urea Nitrogen (BUN) 12 9 - 16 mg/dL [facility] Creatinine, Serum 0.98 0.5 - 1.4 mg/dL [facility] Creatinine Clr Calc Pharmacy 107.7 [facility] Comment:eGFR (calculated fro m the MDRD study equation) and eCrCl(calculated from the Cockcroft-Gault equation) are based ondifferent parameters and may not yield comparable results.If eCrCl result is absurd, please check patient'sheight/weight. Estimated Glomerular Filt Rate >60 [facility] Comment:Chronic Kidney Disea se: Estimated GFR < 60 mL/min/1.56u1Dkoiad Kidney Disease: Estimated GFR < 15 mL/min/1.73m2 Glucose 150(H) 60 - 115 mg/dL [facility] Calcium 9.6 8.4 - 10.2 mg/dL [facility] Bilirubin, Total 0.7 0.0 - 1.0 mg/dL [facility] Aspartate Amino Transferase 28 5 - 37 U/L [facility] Comment:Slight Hemolysis.Int erpret result with caution. Alanine Aminotransferase 19 0 - 40 U/L [facility] Total Protein 7.8 6.5 - 8.0 g/dL [facility] Albumin Level 4.6 3.5 - 5.0 g/dL [facility] Alkaline Phosphatase 157(H) 39 - 117 U/L [facility] 06/04/2025 1:18 PM EDT 06/04/2025 1:30 PM EDT us Generic External Data Provider LAB BLOOD ORDERAB LES Final Result Performing Organization Address [facility] Co de Phone Number [facility] [address] [place] [address] [phone] * (ABNORMAL) Lipid Panel with Reflex to Direct LDL (07/28/2024 9:25 AM EST) Triglycerides 145 <150 mg/dL [facility] Comment:Desirable Triglyceri de: less than 150 mg/dLBorderline High Triglyceride 150-199 mg/dLHigh Triglyceride: 200-499 mg/dLVery High Triglyceride: greater than or equal to 5OO mg/dL Cholesterol 175 <200 mg/dL [facility] Comment:Desirable Cholestero l: less than 200 mg/dLBorderline High Cholesterol: 200-239 mg/dLHigh Cholesterol: greater than 239 mg/dL LDL Cholesterol Calculated 112(H) <100 mg/dL [facility] Comment:Desirable LDL: less than 100 mg/dLNear Optimal/Above Optimal LDL: 110- 129 mg/dLBorderline High LDL: 130-159 mg/dLHigh LDL: 160-189 mg/dLVery High LDL: greater than or equal to 190 mg/dL HDL Cholesterol 34(L) >40 mg/dL [facility] Comment:Desirable HDL: great er than 40 mg/dL Note: This HDL assay may give artificially low results in patients with liver disease. Blood 07/28/2024 9:25 AM EST 07/28/2024 11:10 AM EST us Melissa Edwards MD LAB BLOOD ORDERABLES Fin al Result Performing Organization Address [facility]/ZIP Co de Phone Number [facility] [address] [place] [address] [phone] * Hepatitis Panel, General (07/28/2024 9:25 AM EST) Hepatitis A IgM Nonreactive Nonreactive [facility] Comment:IgM antibodies to KATE V not detected; does not exclude earlyacute or recovered HAV infection. ~Hepatitis B Surface Antibody REACTIVE Nonreactive [facility] Comment:REACTIVE: > 11.99 mI U/mL Hepatitis B Core Antibody Nonreactive Nonreactive [facility] Hepatitis C Antibody Nonreactive Nonreactive [facility] Comment:Antibodies to HCV no t detected; does not exclude early acuteHCV infection. Hepatitis B Surface Ag Negative Negative [facility] Blood 07/28/2024 9:25 AM EST 07/28/2024 11:10 AM EST us Melissa Edwards MD LAB BLOOD ORDERABLES Fin al Result Performing Organization Address [facility]/ZIP Co de Phone Number [facility] [address] [place] [address] [phone] * HIV-1/2 Antigen and Antibodies, Fourth Generation, with Reflexes (07/28/2024 9:25 AM EST) [facility] HIV AB/AG Nonreactive Nonreactive [facility] Comment:HIV-1 p24 Ag and/or HIV-1/HIV-2 Ab not detected.A test result that is nonreactive does not exclude thepossibility of exposure to or infection with HIV-1 and/orHIV-2. Nonreactive results in this assay for individualswith prior exposure to HIV-1 and/or HIV-2 may be due toantigen and antibody levels that are below the limit ofdetection of this assay.The [email or web address] HIV Ag/Ab Combo assay result andsupplemental assay results should be interpreted inconjunction with the patient's clinical presentation,history and other laboratory results. If the results areinconsistent with clinical evidence, additional testing issuggested to confirm the result. Blood Venous blood specimen / Unknown 07/28/2024 9:25 AM EST 07/28/2024 11:10 AM EST us Melissa Edwards MD LAB BLOOD ORDERABLES Fin al Result Performing Organization Address [facility]/ZIP Co de Phone Number [facility] [address] [place] [address] [phone] from Last 3 Months or Most Recently Relevant to Health Maintenance Insurance [facility] Care Teams Equipment Planner Relationship Specialty Start Date End Date Melissa Edwards MD [address] [place] [address] PCP - General Internal Medicine 07/18/24
--- OUTSIDE RECORDS SUMMARY | 2025-06-04 14:20 | XMS_ITS | Encounter Summary ---
Author Organization [employer] Address [address] [place] [address] [address] [place] [address] Care Team Providers Care Director Social Welfare Name Role Phone Melissa Edwards MD Primary Care Provider + Reason for Visit * Reason Onset Date Comments New Patient 05/21/2023 Encounter Details Date Type Department Care Team ([facility] st Contact Info) Description 05/21/2023 Telephone [facility] [address] [place] [address] Onofre Pennington MD [address] [place] [address] New Patient Social History Tobacco Use Types Packs/Day Years Used Date Smoking Tobacco: Never Assessed Sex and Gender Information Value Date Recorded Sex Assigned at Male 05/21/2023 4:51 PM EDT Legal Sex Male 4:49 PM EDT Gender Identity Male 05/21/2023 4:51 PM EDT Sexual Orientation Don't know 05/21/2023 4: 51 PM EDT documented as of this encounter Miscellaneous Notes * Telephone Encounter - Rafaela Underwood - 05/21/2023 4:53 PM EDT Pt has been transfer over to wait list for [employer]STRU[employer]. EFFECTIVE SINCE 05/21/2023 documented in this encounter Plan of Treatment Not on file documented as of this encounter Visit Diagnoses Not on filedocumented in this encounter Care Teams Director Social Welfare Relationship Specialty Start Date End Date Melissa Edwards MD [address] [place] [address] PCP - General Internal Medicine 07/18/24 documented as of this encounter
--- OUTSIDE RECORDS SUMMARY | 2025-06-04 14:20 | XMS_ITS | Encounter Summary ---
Author Organization [email or web address] Address [address] [place] [address] Care Team Providers Care Clinical Data Coordinator Name Role Phone Melissa Edwards MD Primary Care Provider + Encounter Details Date Type Department Care Team ([facility] st Contact Info) Description 06/04/2025 Orders Only GENERIC EXTERNAL DATA DEPARTMENT Provider, Generic External Data Social History Tobacco Use Types Packs/Day Years [...] PM EDT documented as of this encounter Plan of Treatment Not on file documented as of this encounter Procedures Procedure Name Priority Date/Time Associated Diagnosis Comments CBC WITH AUTO DIFFERENTIAL Routine 06/04/2025 1:18 PM EDT MAGNESIUM Routine 06/04/2025 1:18 PM EDT COMPREHENSIVE METABOLIC PANEL Routine 06/04/2025 1:18 PM EDT documented in this encounter Results * Magnesium (06/04/2025 1:18 PM EDT) Magnesium 1.9 1.6 - 2.6 mg/dL [facility] 06/04/2025 1:18 PM EDT 06/04/2025 1:30 PM EDT us Generic External Data Provider LAB BLOOD ORDERAB LES Final Result [facility] [address] [place] [phone] * (ABNORMAL) Comprehensive Metabolic Panel (06/04/2025 1:18 PM EDT) Sodium 139 135 - 145 mmol/L [facility] Potassium 3.9 3.3 - 5.1 mmol/L [facility] Comment:Slight Hemolysis.Int erpret result with caution. Chloride 103 96 - 108 mmol/L [facility] Carbon Dioxide 22 22 - 29 mmol/L [facility] Anion Gap 18 12 - 20 [facility] Urea Nitrogen (BUN) 12 9 - 16 mg/dL [facility] Creatinine, Serum 0.98 0.5 - 1.4 mg/dL [facility] Creatinine Clr Calc Pharmacy 107.7 [facility] Comment:eGFR (calculated fro m the MDRD study equation) and eCrCl(calculated from the Cockcroft-Gault equation) are based ondifferent parameters and may not yield comparable results.If eCrCl result is absurd, please check patient'sheight/weight. Estimated Glomerular Filt Rate >60 [facility] Comment:Chronic Kidney Disea se: Estimated GFR < 60 mL/min/1.08a7Armtmz Kidney Disease: Estimated GFR < 15 mL/min/1.73m2 Glucose 150(H) 60 - 115 mg/dL [facility] Calcium 9.6 8.4 - 10.2 mg/dL [facility] Bilirubin, Total 0.7 0.0 - 1.0 mg/dL [facility] Aspartate Amino Transferase 28 5 - 37 U/L [facility] Comment:Slight Hemolysis.Int erpret result with caution. Alanine Aminotransferase 19 0 - 40 U/L [facility] Total Protein 7.8 6.5 - 8.0 g/dL [facility] Albumin Level 4.6 3.5 - 5.0 g/dL [facility] Alkaline Phosphatase 157(H) 39 - 117 U/L [facility] 06/04/2025 1:18 PM EDT 06/04/2025 1:30 PM EDT us Generic External Data Provider LAB BLOOD ORDERAB LES Final Result [facility] [address] [place] [address] [phone] * (ABNORMAL) CBC auto differential (06/04/2025 1:18 PM EDT) White Blood Count 11.5(H) 4.8 - 10.8 X10*3/uL [facility] Red Blood Count 6.17(H) 4.60 - 5.80 X10*6/uL [facility] Hemoglobin 15.6 14.0 - 18.0 g/dl [facility] Hematocrit 46.5 42.0 - 52.0 % [facility] Mean Corpuscular Volume 75.4(L) 80.0 - 98.0 fL [facility] Mean Corpuscular Hemoglobin 25.3(L) 27.0 - 33.0 pg [facility] Mean Corpuscular HGB Conc 33.5 31.0 - 36.0 g/dl [facility] Red Cell Distribution Width 12.9 11.0 - 16.0 % [facility] Platelet Count 419(H) 160 - 400 X10*3/uL [facility] Mean Platelet Volume 8.6(L) 9.4 - 12.4 fL [facility] Neutrophils Percent Auto 51.0 45 - 73 % [facility] Imm Gran Pct Auto 0.3 0.0 - 0.4 % [facility] Lymphocytes Percent Auto 36.7 20 - 40 % [facility] Monocytes Percent Auto 8.4 2 - 11 % [facility] Eosinophils Percent Auto 2.7 0 - 4 % [facility] Basophils Percent Auto 0.9 0 - 2 % [facility] NRBC Pct Auto 0.0 0.0 - 0.2 /100WBC [facility] Neutrophils Absolute Auto 5.9 2.0 - 8.3 x10*3/uL [facility] Imm Gran Abs Auto 0.03 0.00 - 0.03 X10*3/uL [facility] Lymphocytes Absolute Auto 4.2 1.2 - 4.9 X10*3/uL [facility] Monocytes Absolute Auto 1.0 0.1 - 1.2 X10*3/uL [facility] Eosinophils Absolute Auto 0.3 0.0 - 0.4 X10*3/uL [facility] Basophils Absolute Auto 0.1 0.0 - 0.2 X10*3/uL [facility] NRBC Abs Auto 0.000 0.0 - 0.012 X10*3/uL [facility] 06/04/2025 1:18 PM EDT 06/04/2025 1:30 PM EDT us Generic External Data Provider LAB BLOOD ORDERAB LES Final Result [facility] [address] [place] [address] [phone] documented in this encounter Visit Diagnoses Not on filedocumented in this encounter Additional Health Concerns Assessment Noted Time PHQ-9 Depression Total Score: 22 024 4:41 PM EDT documented as of this encounter Care Teams Clinical Data Coordinator Relationship Specialty Start Date End Date Melissa Edwards MD [address] [place] [address] PCP - General Internal Medicine 07/18/24 documented as of this encounter
--- OUTSIDE RECORDS SUMMARY | 2025-06-04 14:20 | XMS_ITS | Encounter Summary ---
Author Organization [employer] Address [address] [place] [address] Care Team Providers Care Penciller Name Role Phone Melissa Edwards MD Primary Care Provider + Encounter Details Date Type Department Care Team ([facility] st Contact Info) Description 01/02/2025 Telephone [facility] [address] [place] [address] Ashwini Ciera, OD [address] [place] [address] Social History Tobacco Use Types Packs/Day Years [...] documented as of this encounter Care Teams Penciller Relationship Specialty Start Date End Date Melissa Edwards MD [address] [place] [phone] PCP - General Internal Medicine 07/18/24 documented as of this encounter
[2025-06-04 15:27] LABS: Lipase 25 U/L (8-78)
[2025-06-04 16:38] LABS: Appearance Urine Cloudy; Glucose Urine UA Negative (Negative); PH 6.5 (5.0-9.0); Specific Gravity - Urine >= 1.030 (1.005-1.025); UMIC TRIGGER UACC YES
[2025-06-04 16:51] LABS: UACC Culture Trigger YES
--- NOTE | 2025-06-04 18:33 | P.HPHOSP_ITS ---
History of Present Illness Date of Service: 06/04/25 Chief Complaint: Flank pain, kidney stone Patient is a 40-year-old male with history of kidney stone in 2021 that required no intervention. He presented with abdominal pain that woke him up this morning. He describes excruciating right flank pain and dark urine. Pain is similar to data over last kidney stone. Has gotten no relief with positional change or [id number] pain medication. And therefore came to the emergency room to be assessed. CT shows1. Right hydronephrosis and proximal right hydroureter with obstructing 0.3 cm in the proximal right ureteral nephrolith. He has been experiencing nausea also. He has received multiple doses of Dilaudid, morphine and ketorolac in the emergency room and feels a little comfortable now. His urine is [employer] color Review of Systems 2 Review of Systems: Gen: no fever Resp: no sob, no cough CV: no chest, no SANTANA, no leg edema GI: No n/v, no abd pain Neuro: No confusion PMFSH Social History Patient Tobacco Use Status: Tobacco use Unknown Advance Directives: No Advance Directives Information Provided: No Nutrition Risks: No Nutritional Risk Meds Allergies Allergy/AdvReac Type Severity Reaction Status Date / Time No Known Allergies (No Known Allergy Verified 06/04/25 13:03 Allergies*) Physical Exam 2 Vital Signs and Narrative: Vital Signs: Last Vital Signs Temp 97 F 06/04/25 18:00 Pulse 79 06/04/25 18:12 Resp 16 06/04/25 18:12 BP 118/75 06/04/25 18:12 Pulse Ox 100 06/04/25 18:12 O2 Del Method Room Air 06/04/25 18:12 O2 Flow Rate 2 06/04/25 17:39 BMI result Body Mass Index 23.8 Const: Other: General: AO X 3, no acute distress Resp: CTA bilateral CVS: S1,S2,RRR GI: +BS, NT, no distention Skin: No rash Neuro: motor grossly intact Psych: appropriate affect Results Labs 06/04/25 13:18 06/05/25 05:21 Labs: Laboratory Results - last 24 hr 06/04/25 06/04/25 13:18 16:34 MCV 75.4 L MCH 25.3 L MCHC 33.5 RDW 12.9 Plt Count 419 H D MPV 8.6 L Immature Gran % (Auto) 0.3 Neut % (Auto) 51.0 Lymph % (Auto) 36.7 [place] % (Auto) 8.4 Eos % (Auto) 2.7 Baso % (Auto) 0.9 Lymph # (Auto) 4.2 [place] # (Auto) 1.0 Eos # (Auto) 0.3 Baso # (Auto) 0.1 Abs Immat Gran (auto) 0.03 Absolute Neuts (auto) 5.9 Absolute Nucleated RBC 0.000 Nucleated RBC % (auto) 0.0 Anion Gap 18 Estim Creat Clear Calc 107.7 Estimated GFR > 60 Random Glucose 150 H Calcium 9.6 Magnesium 1.9 Total Bilirubin 0.7 AST 28 ALT 19 Alkaline Phosphatase 157 H Total Protein 7.8 Albumin 4.6 Lipase 25 Urine Color Other A Urine Appearance Cloudy Urine pH 6.5 Ur Specific [place] >= 1.030 H Urine Protein 300 (3+) H Urine Glucose (UA) Negative Urine Ketones >=80 Urine Blood Large (3+) H Urine Nitrite Positive H Ur Leukocyte Esterase Trace H Urine RBC >20 H Urine WBC 0-5 Ur Squamous Epith Cells 3-5 Calcium Oxalate Crystal Present Urine Bacteria None Seen Hyaline Casts 11-20 Assessment and Plan (1) Calculus of proximal right ureter: Status: Acute (2) Hydroureteronephrosis: Status: Acute Plan 40-year-old male with1. Right hydronephrosis and proximal right hydroureter with obstructing 0.3 cm in the proximal right ureteral nephrolith and Hematuria Plan: Pain IV Pain control with dilaudid, oxycodone strain urine Urology consult NPO after midnight DVT: early ambulation in light of hematuria Quality Stroke Does the patient have a stroke diagnosis?: No VTE Prior VTE?: No VTE Risk Level:: Medical - low VTE Device Contraindication: Treatment Not Indicated VTE Drug Contraindication: Treatment Not Indicated
[2025-06-04] MEDS: Lactated Ringers 1,000 ML 125 ML IVCONT (18:46)
[2025-06-05] VITALS (13 sets, daily range): BP systolic 100–146; BP diastolic 53–76; PULSE 74–100; RESP 16–22; TEMP 36–36.9; O2SAT 94–99; BMI 24.9
--- NOTE | 2025-06-05 02:14 | PC.NURSE ---
Pt is currentley reporting right flank pain. Dilaudid given as ordered which provided some relief for a short time. Pt states unable to take the prescribed Oxycodone PO as he is on Suboxone and will not get any relief. Pt is also actively vomiting. Zofran given with no relief at this time. Jo[place] text sent to hospitalist with this information. No new orders at this time.
[2025-06-05] MEDS: Lactated Ringers 1,000 ML 125 ML IVCONT ×4 (02:33→23:17)
--- NOTE | 2025-06-05 02:36 | PC.NURSE ---
Per Dr. Angel: Give another dose of Dilaudid 0.5 IV now. Pt medicated with good effect. Monitoring is ongoing.
[2025-06-05 06:28] LABS: Alanine Aminotransferase 14 U/L (0-40); Albumin Level 4.1 g/dL (3.5-5.0); Alkaline Phosphatase 133 U/L (39-117); Anion Gap 15 (12-20); Aspartate Amino Transferase 24 U/L (5-37); Blood Urea Nitrogen 11 mg/dL (9-16); Calcium 8.8 mg/dL (8.4-10.2); Carbon Dioxide 25 mmol/L (22-29); Chloride 105 mmol/L (96-108); Creatinine Clr Calc Pharmacy 124.2; Estimated Glomerular Filt Rate > 60; Potassium 4.0 mmol/L (3.3-5.1); Sodium 141 mmol/L (135-145); Total Protein 6.6 g/dL (6.5-8.0)
--- NOTE | 2025-06-05 08:24 | HO.PM.IMPN ---
Subjective Subjective Date of Service: 06/05/25 Interval History: He is still experiencing tremendous right flank pain, is uncomfortable. Urine remains dark Review of Systems Gen: no fever Resp: no sob, no cough CV: no chest, no SANTANA, no leg edema GI: No n/v, no abd pain Neuro: No confusion Physical Exam Vital Signs: Vital Signs: Last Vital Signs Temp 98.3 F 06/05/25 05:04 Pulse 89 06/05/25 05:04 Resp 20 06/05/25 05:04 BP 107/68 06/05/25 05:04 Pulse Ox 95 06/05/25 05:04 O2 Del Method Room Air 06/05/25 05:04 O2 Flow Rate 2 06/04/25 17:39 BMI result Body Mass Index 23.8 Const: Other: General: AO X 3, no acute distress Resp: CTA bilateral CVS: S1,S2,RRR GI: +BS, NT, no distention Skin: No rash Neuro: motor grossly intact Psych: appropriate affect Objective Data Active Medications Acetaminophen (Acetaminophen 325 Mg Tablet) 650 mg PO Q6H PRN PRN Reason: Pain, Mild 1-3,fever,headache Calcium Carbonate (Calcium Carbonate 750 Mg Tab.Chew) 750 mg PO Q4H PRN PRN Reason: Heartburn Hydromorphone HCl (Hydromorphone Hcl 1 Mg/Ml Syringe) 0.5 mg IVPUSH Q4H PRN; Protocol PRN Reason: Pain, Severe (Pain Scale 7-10) Last Admin: 06/05/25 07:26 Dose: 0.5 mg Documented By: KEKE Lactated Ringer's (Lr) 1,000 mls @ 125 mls/hr IVCONT .Q8H SARAH Last Admin: 06/05/25 02:33 Dose: 125 mls/hr Documented By: FEMI Magnesium Hydroxide (Milk Of Magnesia 30 Ml Oral.Susp) 30 ml PO DAILY PRN PRN Reason: Constipation Melatonin (Melatonin 3 Mg Tablet) 6 mg PO BEDTIME PRN PRN Reason: Insomnia Ondansetron HCl (Ondansetron Hcl 4 Mg/2 Ml Vial) 4 mg IVPUSH Q8H PRN PRN Reason: Nausea and Vomiting Last Admin: 06/05/25 01:25 Dose: 4 mg Documented By: HO.CRUZE Oxycodone HCl (Oxycodone Hcl Immed Release 5 Mg Tablet) 5 mg PO Q6H PRN PRN Reason: Pain, Severe (Pain Scale 7-10) Sodium Chloride (0.9 % Sodium Chloride Flush 3 Ml Syringe) 3 ml IVFLUSH QSHIFT SARAH Last Admin: 06/05/25 08:13 Dose: Not Given Documented By: HAIR Non-Admin Reason: Not In Room Labs 06/04/25 13:18 06/05/25 05:21 Labs: Laboratory Results - last 24 hr 06/04/25 06/04/25 06/05/25 13:18 16:34 05:21 MCV 75.4 L MCH 25.3 L MCHC 33.5 RDW 12.9 Plt Count 419 H D MPV 8.6 L Immature Gran % (Auto) 0.3 Neut % (Auto) 51.0 Lymph % (Auto) 36.7 [place] % (Auto) 8.4 Eos % (Auto) 2.7 Baso % (Auto) 0.9 Lymph # (Auto) 4.2 [place] # (Auto) 1.0 Eos # (Auto) 0.3 Baso # (Auto) 0.1 Abs Immat Gran (auto) 0.03 Absolute Neuts (auto) 5.9 Absolute Nucleated RBC 0.000 Nucleated RBC % (auto) 0.0 Anion Gap 18 15 Estim Creat Clear Calc 107.7 124.2 Estimated GFR > 60 > 60 Random Glucose 150 H 103 Calcium 9.6 8.8 D Magnesium 1.9 Total Bilirubin 0.7 0.5 AST 28 24 ALT 19 14 Alkaline Phosphatase 157 H 133 H Total Protein 7.8 6.6 Albumin 4.6 4.1 Lipase 25 Urine Color Other A Urine Appearance Cloudy Urine pH 6.5 Ur Specific [place] >= 1.030 H Urine Protein 300 (3+) H Urine Glucose (UA) Negative Urine Ketones >=80 Urine Blood Large (3+) H Urine Nitrite Positive H Ur Leukocyte Esterase Trace H Urine RBC >20 H Urine WBC 0-5 Ur Squamous Epith Cells 3-5 Calcium Oxalate Crystal Present Urine Bacteria None Seen Hyaline Casts -20 Microbiology Microbiology Results: Microbiology 06/04/25 Unknown Urine Culture - Preliminary Urine clean catch - Clean Catch Midstream No growth to date. Assessment and Plan (1) Calculus of proximal right ureter: Status: Acute (2) Hydroureteronephrosis: Status: Acute Plan 40-year-old male with1. Right hydronephrosis and proximal right hydroureter with obstructing 0.3 cm in the proximal right ureteral nephrolith and Hematuria Plan: Pain IV Pain control with dilaudid, oxycodone strain urine Urology consult to see if needed intubation NPO DVT: early ambulation in light of hematuria Quality Stroke Does the patient have a stroke diagnosis?: No VTE Prior VTE?: No VTE Risk Level:: Medical - low VTE Device Contraindication: Treatment Not Indicated VTE Drug Contraindication: Treatment Not Indicated
--- NOTE | 2025-06-05 09:04 | PHA.MEDREC ---
Pharmacy Consult ? Medication Reconciliation Pharmacy has completed the medication reconciliation. Utilzied lock box that was brought to pharmacy. Gets suboxone through outpatient clinic
--- NOTE | 2025-06-05 09:47 | P.CONAN_ITS ---
Documented by User: Lakesha Clifton NP 06/05/25 09:48 HPI - Anesthesia Eval Consult details Narrative: 40 yr old male for right Cystoscopy Ureteroscopy,with stent placement ?on suboxone PMFSH Active Problems Active Problems: All Active Problems (Updated 06/04/25 @ 17:15 by DYLAN Rey) Acute UTI (Acute) Hydroureteronephrosis (Acute) Calculus of proximal right ureter (Acute) Past Medical History Medical History Epigastric abdominal pain Hydronephrosis concurrent with and due to calculi of kidney and ureter Hydronephrosis Kidney stones Surgical History Surgical History No pertinent past surgical history Social History Social History Household Members: Family Housing: House Do you presently have visiting nurse or other home services: No Patient Tobacco Use Status: Former Tobacco user Substance Use Type Other:: 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 If so, by whom?: No Are you DNR?: No Advance Directives: No Advance Directives Information Provided: No Do you have a plan to hurt others: No Plan Recently lost weight without trying: No Nutrition Risks: No Nutritional Risk Poor oral hygiene: No service: No Meds Allergies Allergy/AdvReac Type Severity Reaction Status Date / Time No Known Allergies (No Known Allergy Verified 06/04/25 13:03 Allergies*) Active Medications: Current Medications Acetaminophen (Acetaminophen 325 Mg Tablet) 650 mg PO Q6H PRN PRN Reason: Pain, Mild 1-3,fever,headache Calcium Carbonate (Calcium Carbonate 750 Mg Tab.Chew) 750 mg PO Q4H PRN PRN Reason: Heartburn Hydromorphone HCl (Hydromorphone Hcl 1 Mg/Ml Syringe) 0.5 mg IVPUSH Q4H PRN; Protocol PRN Reason: Pain, Severe (Pain Scale 7-10) Last Admin: 06/05/25 07:26 Dose: 0.5 mg Lactated Ringer's (Lr) 1,000 mls @ 125 mls/hr IVCONT .Q8H SARAH Last Admin: 06/05/25 08:52 Dose: 125 mls/hr Magnesium Hydroxide (Milk Of Magnesia 30 Ml Oral.Susp) 30 ml PO DAILY PRN PRN Reason: Constipation Melatonin (Melatonin 3 Mg Tablet) 6 mg PO BEDTIME PRN PRN Reason: Insomnia Ondansetron HCl (Ondansetron Hcl 4 Mg/2 Ml Vial) 4 mg IVPUSH Q8H PRN PRN Reason: Nausea and Vomiting Last Admin: 06/05/25 08:50 Dose: 4 mg Oxycodone HCl (Oxycodone Hcl Immed Release 5 Mg Tablet) 5 mg PO Q6H PRN PRN Reason: Pain, Severe (Pain Scale 7-10) Sodium Chloride (0.9 % Sodium Chloride Flush 3 Ml Syringe) 3 ml IVFLUSH QSHIFT [facility] Last Admin: 06/05/25 08:13 Dose: Not Given Home Medications ?Medication ?Instructions ?Recorded ?Confirmed ?Last Taken ?Type buprenorphine 2 mg-naloxone 0.5 mg 1 film buccal BID 0 06/05/25 06/05/25 Unknown History sublingual film Exam Height,Weight and Vital Signs: Height 5 ft 11 in Weight 81 kg Last Vital Signs Temp 97.8 F 06/05/25 08:37 Pulse 93 06/05/25 08:37 Resp 18 06/05/25 08:37 BP 146/76 H 06/05/25 08:37 Pulse Ox 95 06/05/25 08:37 O2 Del Method Room Air 06/05/25 08:37 O2 Flow Rate 2 06/04/25 17:39 Pertinent Lab Results Pertinent Lab Results: Laboratory Tests 06/04/25 06/04/25 06/05/25 13:18 16:34 05:21 WBC 11.5 H RBC 6.17 H Hgb 15.6 Hct 46.5 MCV 75.4 L MCH 25.3 L MCHC 33.5 RDW 12.9 Plt Count 419 H D MPV 8.6 L Immature Gran % (Auto) 0.3 Neut % (Auto) 51.0 Lymph % (Auto) 36.7 [place] % (Auto) 8.4 Eos % (Auto) 2.7 Baso % (Auto) 0.9 Lymph # (Auto) 4.2 [place] # (Auto) 1.0 Eos # (Auto) 0.3 Baso # (Auto) 0.1 Abs Immat Gran (auto) 0.03 Absolute Neuts (auto) 5.9 Absolute Nucleated RBC 0.000 Nucleated RBC % (auto) 0.0 Sodium 139 141 Potassium 3.9 4.0 Chloride 103 105 Carbon Dioxide 22 25 Anion Gap 18 15 BUN 12 11 Creatinine 0.98 0.85 Estim Creat Clear Calc 107.7 124.2 Estimated GFR > 60 > 60 Random Glucose 150 H 103 Calcium 9.6 8.8 D Magnesium 1.9 Total Bilirubin 0.7 0.5 AST 28 24 ALT 19 14 Alkaline Phosphatase 157 H 133 H Total Protein 7.8 6.6 Albumin 4.6 4.1 Lipase 25 Urine Color Other A Urine Appearance Cloudy Urine pH 6.5 Ur Specific [place] >= 1.030 H Urine Protein 300 (3+) H Urine Glucose (UA) Negative Urine Ketones >=80 Urine Blood Large (3+) H Urine Nitrite Positive H Ur Leukocyte Esterase Trace H Urine RBC >20 H Urine WBC 0-5 Ur Squamous Epith Cells 3-5 Calcium Oxalate Crystal Present Urine Bacteria None Seen Hyaline Casts 11-20 Documented by User: Florence Leyva MD 06/05/25 16:39 [facility] Past Medical History Medical History Epigastric abdominal pain Hydronephrosis concurrent with and due to calculi of kidney and ureter Hydronephrosis Kidney stones Surgical History Surgical History No pertinent past surgical history History of Problems with Anesthesia: No Social History Social History Household Members: Family Housing: House Do you presently have visiting nurse or other home services: No Patient Tobacco Use Status: Former Tobacco user Substance Use Type Other:: 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 If so, by whom?: No Are you DNR?: No Advance Directives: No Advance Directives Information Provided: No Do you have a plan to hurt others: No Plan Recently lost weight without trying: No Nutrition Risks: No Nutritional Risk Poor oral hygiene: No service: No Meds Allergies Allergy/AdvReac Type Severity Reaction Status Date / Time No Known Allergies (No Known Allergy Verified 06/04/25 13:03 Allergies*) Home Medications ?Medication ?Instructions ?Recorded ?Confirmed ?Last Taken ?Type buprenorphine 2 mg-naloxone 0.5 mg 1 film buccal BID 0 06/05/25 06/05/25 Unknown History sublingual film Exam Airway Mallampati Class: III (full kumar) TM Dist: >3cm Neck ROM: Full Loose/Missing/Broken Teeth: No Heart: RRR Lungs: CTA Assessment and Plan Assessment Anesthesia Assessment: Anesthesia Plan Discussed and Chart Reviewed Final Anesthetic Review History of Problems with Anesthesia: No NPO: Yes ASA Class: II Final Preanesthetic Review: Meds/Allgs Chart Reviewed, Consent Obtained/Reviewed and Anes Risks/Benef Reviewed Patient Risk: Low Procedure Risk: Low Anesthetic Plan Anesthetic Plan: GA Disposition: Standard PACU
--- NOTE | 2025-06-05 12:49 | MHC.CM.PN ---
PT LIVES WITH FAMILY IS INDEPENDENT HAS A RIDE HIME WILL NOT NEED SERVICES WHEN DCD DC PLAN HOMEM N/S
--- NOTE | 2025-06-05 14:12 | PM.UROCN ---
History of Present Illness Consult details Consult date: 06/05/25 Narrative: CC: Right ureteric stone 40-year-old male Present through emergency room with excruciating right flank pain and dark urine Similar to prior kidney stone passage Minimal relief from [id number] medications Pain has been controlled emergency room with IV and IM medications but not oral CT scan- Right hydronephrosis and proximal right hydroureter with obstructing 0.3 cm in the proximal right ureteral nephrolithiasis.. Laboratories - creatinine 0.8, WBC 11.5 Continues with right-sided flank pain on evaluation this morning Recommend intervention Review of Systems Constitutional: Constitutional: Reports as per HPI and Reports no additional constitutional complaints Cardiovascular: Cardiovascular: Reports as per HPI and Reports no additional cardiovascular complaints Respiratory: Respiratory: Reports as per HPI and Reports no additional respiratory complaints Gastrointestinal: Gastrointestinal: Reports as per HPI and Reports no additional gastrointestinal complaints Genitourinary: Genitourinary: Reports as per HPI Musculoskeletal: Musculoskeletal: Reports no additional musculoskeletal complaints and Reports as per HPI Neurologic: Reports system reviewed and no additional complaints, except as documented and Reports as per HPI [facility] Past Medical History Medical History (Updated 06/05/25 @ 12:23 by Hillary Salvador RN) Epigastric abdominal pain Hydronephrosis concurrent with and due to calculi of kidney and ureter Hydronephrosis Kidney stones Surgical History Surgical History (Updated 06/05/25 @ 14:11 by Hillary Salvador RN) No pertinent past surgical history Social History Social History Household Members: Family Housing: House Do you presently have visiting nurse or other home services: No Patient Tobacco Use Status: Tobacco use Unknown Have you been hit, kicked, punched, or otherwise hurt by someone within the past year? If so, by whom?: No Advance Directives: No Advance Directives Information Provided: No Do you have a plan to hurt others: No Plan Recently lost weight without trying: No Nutrition Risks: No Nutritional Risk Poor oral hygiene: No service: No Meds Allergies Allergy/AdvReac Type Severity Reaction Status Date / Time No Known Allergies (No Known Allergy Verified 06/04/25 13:03 Allergies*) Active Medications: Current Medications Acetaminophen (Acetaminophen 325 Mg Tablet) 650 mg PO Q6H PRN PRN Reason: Pain, Mild 1-3,fever,headache Calcium Carbonate (Calcium Carbonate 750 Mg Tab.Chew) 750 mg PO Q4H PRN PRN Reason: Heartburn Hydromorphone HCl (Hydromorphone Hcl 1 Mg/Ml Syringe) 1 mg IVPUSH Q4H PRN; Protocol PRN Reason: Pain, Severe (Pain Scale 7-10) Last Admin: 06/05/25 10:40 Dose: 1 mg Lactated Ringer's (Lr) 1,000 mls @ 125 mls/hr IVCONT .Q8H [facility] Last Admin: 06/05/25 08:52 Dose: 125 mls/hr Magnesium Hydroxide (Milk Of Magnesia 30 Ml Oral.Susp) 30 ml PO DAILY PRN PRN Reason: Constipation Melatonin (Melatonin 3 Mg Tablet) 6 mg PO BEDTIME PRN PRN Reason: Insomnia Ondansetron HCl (Ondansetron Hcl 4 Mg/2 Ml Vial) 4 mg IVPUSH Q8H PRN PRN Reason: Nausea and Vomiting Last Admin: 06/05/25 08:50 Dose: 4 mg Oxycodone HCl (Oxycodone Hcl Immed Release 5 Mg Tablet) 5 mg PO Q6H PRN PRN Reason: Pain, Severe (Pain Scale 7-10) Oxycodone HCl (Oxycodone Hcl Immed Release 5 Mg Tablet) 5 mg PO Q4H PRN PRN Reason: Pain, Moderate(Pain Scale 4-6) Sodium Chloride (0.9 % Sodium Chloride Flush 3 Ml Syringe) [facility] Last Admin: 06/05/25 08:13 Dose: Not Given Home Medications ?Medication ?Instructions ?Recorded ?Confirmed ?Last Taken ?Type buprenorphine 2 mg-naloxone 0.5 mg 1 film buccal BID 06/05/25 06/05/25 Unknown History sublingual film Physical Exam Vital Signs: Vital Signs: Last Vital Signs Temp 97.8 F 06/05/25 08:37 Pulse 93 06/05/25 08:37 Resp 18 06/05/25 08:37 BP 146/76 H 06/05/25 08:37 Pulse Ox 95 06/05/25 08:37 O2 Del Method Room Air 06/05/25 08:37 O2 Flow Rate 2 06/04/25 17:39 BMI result Body Mass Index 24.9 Const: General: cooperative, healthy appearing, comfortable and no acute distress Orientation/consciousness: patient oriented x3 HEENT: Face and sinus: Yes normal facial exam Mouth: moist mucous membranes Neck: Neck: Yes normal visual inspection, Yes full ROM and Yes trachea midline Chest: Chest palpation & inspection: normal inspection of the chest Resp: Effort & Inspection: normal respiratory effort, able to speak in complete sentences and no respiratory distress GI: Inspection: Yes normal to inspection Back/Spine/Pelvis: Cervical Spine: normal cervical lordosis Thoracic/Lumbar Spine: thoracic and lumbar spine normal to inspection Skin: General skin exam: no rashes or lesions noted Neuro: General: patient oriented x3, tone normal and moves all extremities Extrem: General: Yes normal to inspection and Yes capillary refill normal Results Labs 06/04/25 13:18 06/05/25 05:21 Labs: Abnormal lab results 06/04/25 06/05/25 Range/Units 16:34 05:21 Alkaline Phosphatase 133 H (39-117) U/L Urine Color Other A Ur Specific [place] >= 1.030 H (1.005-1.025) Urine Protein 300 (3+) H (Neg-Trace) mg/dL Urine Blood Large (3+) H (Negative) Urine Nitrite Positive H (Negative) Ur Leukocyte Esterase Trace H (Negative) Urine RBC >20 H (0-2) /HPF BMP 06/05/25 05:21 Sodium 141 Potassium 4.0 Chloride 105 Carbon Dioxide 25 BUN 11 Creatinine 0.85 Calcium 8.8 D Liver Function 06/05/25 Range/Units 05:21 Total Bilirubin 0.5 (0.0-1.0) mg/dL AST 24 (5-37) U/L ALT 14 (0-40) U/L Alkaline Phosphatase 133 H (39-117) U/L Albumin 4.1 (3.5-5.0) g/dL Urine 06/04/25 Range/Units 16:34 Urine Color Other A Urine Appearance Cloudy Urine pH 6.5 (5.0-9.0) Ur Specific [place] >= 1.030 H (1.005-1.025) Urine Protein 300 (3+) H (Neg-Trace) mg/dL Urine Glucose (UA) Negative (Negative) mg/dL All other labs normal. Assessment and Plan (1) Calculus of proximal right ureter: Status: Acute (2) Hydroureteronephrosis: Status: Acute Plan Ureteroscopy We discussed the nature of the decision and reasonable alternatives for performing ureteroscopy. Options such as medical therapy were discussed. Interventions include chemical dissolution, ESWL, ureteroscopy with laser lithotripsy and stent placement, PCNL. The relative uncertainties and benefits related to each alternate procedure were adequately discussed. General surgical risks including, but not limited to - pain, bleeding, infection, myocardial infarction, pulmonary embolus, deep vein thrombosis and cerebrovascular accident which may result in further hospitalization were discussed. Full disclosure of the procedure as well as all major risks, benefits and complications were discussed including but not limited to damage to the urethra, bladder and kidney infection, damage to the ureter, stent migration or malposition, scarring to the renal pelvis, remnant stone fragments, subsequent stone passage with need for secondary procedures. The overall secondary procedure rate is approximately 10-15%. The overall clearance rate is approximately 90-95%. Success of the procedure in the short-term does not necessarily guarantee that long-term success will be maintained. Suitable follow up will need to be maintained. The patient showed understanding of discussion and wishes to proceed with - cystoscopy, retrograde, ureteroscopy, possible lithotripsy/stone basketing and stent on the right side Procedures Date of Service Date of Service: 06/05/25
[2025-06-05] MEDS: Lactated Ringers 1,000 ML 50 ML IVCONT (14:25)
--- NOTE | 2025-06-05 17:08 | MHC.SHP ---
Pre-Procedural Eval Section A - 24 Hr Update-Section A only Date of Service: 06/05/25 The patient is an INPATIENT: Yes Changes since office visit: No Cold of Flu in the past 2 weeks, No New Medical Problems, No Changes in Medication and No Patient answered all questions The patient has been examined within 24 hours of the surgical procedure. The History & Physical has been completed within 30 days and I have reviewed it.: Yes Section B - Complete if H&P > 30 days Chief Complaint: Kidney stone, Hydronephrosis Details of Present Illness: Cystoscopy, right retrograde, right ureteroscopy with laser lithotripsy stent placement Relevant Social History: None Present Medications: see Short Stay Collaborative assessment Medical History: No relevant PMH History of Previous Operations: No relevant previous surgery Allergies: Allergies Allergy/AdvReac Type Severity Reaction Status Date / Time No Known Allergies (No Known Allergy Verified 06/04/25 13:03 Allergies*) Review of Systems Sugical H&P ROS: Negative: Constitution, Cardiovascular, Respiratory, Neurological, Psychiatric, Hem-Onc, Allergic/Immunologic, Gastrointestinal, Genitourinary, Musculoskeletal, Integumentary, Endocrine and Eyes/Ears/Nose/Throat Exam Surgical H&P Exam: Normal: HEENT, Normal: Heart, Normal: Lungs, Normal: Extremities, Normal: Abdomen, Normal: Skin and Normal: Neurological Plan Diagnosis/Plan: Unchanged I have reviewed the history and physical and performed a pertinent physical examination on my patient. No changes have occurred unless specified. Time Spent With Patient Time: Total time managing care of this patient today ____ minutes.
--- NOTE | 2025-06-05 18:02 | W.PM.OPN ---
Operative Note Operative Note Date of Service: 06/05/25 Narrative: PreOperative Diagnosis: Right proximal ureter plus hydro nephrosis Post Operative Diagnosis: Right hydro nephrosis with debris Procedure: - right cystoscopy, retrograde - right dilatation of ureteric orifice under fluoroscopy - right ureteroscopy - right stent placement Surgeon: Dr Joss Rodriguez Anesthesia: General Indications for procedure: Right proximal ureter stone with hydronephrosis and persistent pain Procedure: After informed consent was verified patient was brought to the operating placed in supine position. Anesthesia was administered per protocol. Patient was placed in modified dorsal lithotomy position and prepped and draped in a sterile fashion. Safety pause time-out and side of surgery confirmed. Antibiotics confirmed. A 22 Estonian cystoscope was inserted per urethra. The urethra and bladder were normal in their entirety. Both ureteric orifices were in normal position. The right ureteric orifice was cannulated and a retrograde examination was performed. Deviation in proximal right ureter with hydronephrosis. A Sensor guidewire was placed up to the level of the renal pelvis under fluoroscopy. The rigid cystoscope was removed and the inner cannula of ureteric access sheath was used under fluoroscopy to dilate the ureteric orifice. The ureteric access sheath was placed and the inner cannula with access wire removed. The digital flexible ureteral scope was placed. Debris within the right renal pelvis. Irrigation performed. Debris removed. No definitive stone seen. At the completion of the stone procedure a Sensor wire was placed back into the renal pelvis. A 6 Estonian by 28 cm double-J stent was placed into the renal pelvis and bladder under a combination of fluoroscopy and direct visualization. Proximal positioning of the stent was confirmed using fluoroscopy. The bladder was emptied. The patient tolerated the procedure well and was extubated in the operating room, and transferred in stable condition to the recovery area. Pathology: None Drains: Stent as above
[2025-06-05] MEDS: Buprenorphine/Naloxone 2/0.5mg FILM 1 FILM SUBLINGUAL (21:35)
[2025-06-06 03:31] VITALS: BP 103/59; PULSE 76; RESP 18; TEMP 36.3; O2SAT 95
[2025-06-06 07:41] VITALS: BP 105/59; PULSE 69; RESP 18; TEMP 36.6; O2SAT 95
[2025-06-06] MEDS: Buprenorphine/Naloxone 2/0.5mg FILM 1 FILM SUBLINGUAL (09:00)
[2025-06-06] MEDS: Lactated Ringers 1,000 ML 125 ML IVCONT (09:00)
--- NOTE | 2025-06-06 09:48 | HO.POSTANES ---
Post Anesthesia Evaluation Post Anesthesia Evaluation Date of Service: 06/06/25 Vital Signs: Vital Signs Temp Pulse Resp BP Pulse Ox O2 Del Method 06/06/25 07:41 97.9 F 69 18 105/59 L 95 Room Air 06/06/25 03:31 97.3 F 76 18 103/59 L 95 Room Air Anesthesia: General Mental Status: Awake Pain Control: Satisfactory Nausea/Vomiting: None Hydration: Adequate Anesthesia-Related Issues: No Anes. Related Issues
--- NOTE | 2025-06-06 13:23 | P.DS_ITS ---
DS: Providers Provider Date of Service: 06/06/25 Date of admission: 06/04/25 17:56 Date of discharge: 06/06/25 Primary care physician: [facility] Consults: 06/04/25 18:39 Consult to Urology Routine Consulting Provider: [facility] Reason for consultation: kidney stone, hematuria Attending physician on discharge: Darnell Houser DS: Diagnosis Discharge Diagnosis (1) Calculus of proximal right ureter: Status: Acute (2) Hydroureteronephrosis: Status: Acute DS: Summary Hospital Course Hospital Course: Chief Complaint: Flank pain, kidney stone Patient is a 40-year-old male with history of kidney stone in 2021 that required no intervention, Presents with right flank pain, admitted with right hydroureteronephrosis 2/2 obstructing 0.3 cm proximal right ureteral nephrolith & hematuria s/p cystoscopy with right ureteroscopy with laser lithotripsy and stent placement 06/05 by Urology without complications He presented with abdominal pain that woke him up this morning. He describes excruciating right flank pain and dark urine. Pain is similar to data over last kidney stone. Has gotten no relief with positional change or [id number] pain medication. And therefore came to the emergency room to be assessed. CT shows1. Right hydronephrosis and proximal right hydroureter with obstructing 0.3 cm in the proximal right ureteral nephrolith. He has been experiencing nausea also. He has received multiple doses of Dilaudid, morphine and ketorolac in the emergency room and feels a little comfortable now. His urine is [employer] color. urology evaluated the patient, and intervention with cystoscopy with right ureteroscopy was conducted s/p laser lithotripsy with stent placement on 06/05. Procedure was uncomplicated. Creatinine remained within baseline. No complications postoperatively, and the patient was pain free, urinating normally. Patient was deemed medically stable for discharge home. Status at Discharge Cognitive/behavioral status at discharge: alert oriented to person place and time Functional status at discharge: independent ambulation Overall status at discharge: patient is back to baseline Time Attestation Total time managing care of this patient today: 35 mintues. Discharge Coordination Time (in mins): 15 Quality: Safe Use of Opioids Does Pt have an Active Cancer Diagnosis on the Problem List?: No Quality: Stroke Does the patient have a stroke diagnosis?: No Physical Exam Exam: Exam: General: A&O x3, oriented to time place person and situation, comfortable, no pain Cardiac: S1, S2 auscultated with no S3/4, no MRG. Well perfused. Respiratory: Normal breath sounds auscultated throughout all lung zones, without wheezing, rales. Normal rate. GI/ : No abdominal pain on palpation, no masses or distentions. MSK: Normal ambulation without pain at bony prominences or musculature Neurological: Normal neurological examination on overview, without obvious CN II-XII abnormalities. Vital Signs: Vital Signs: Last Vital Signs Temp 97.9 F 06/06/25 07:41 Pulse 69 06/06/25 07:41 Resp 18 06/06/25 07:41 BP 105/59 L 06/06/25 07:41 Pulse Ox 95 06/06/25 07:41 O2 Del Method Room Air 06/06/25 07:41 O2 Flow Rate 2 06/04/25 17:39 BMI result Body Mass Index 24.9 DS: Data Data Completed and Pending Labs on day of discharge: Preliminary micro results at discharge 06/04/25 17:08 Blood Culture - Preliminary Blood - Venous No growth after 24 hours. 06/04/25 17:14 Blood Culture - Preliminary Blood - Venous No growth after 24 hours. Discharge Plan Discharge Anticipated Discharge Date/Time: 06/06/25 13:28 Patient Disposition: Home, Self-Care Discharge Diagnosis: Acute hydroureteronephrosis right-sided 2/2 obstructing nephrolithiasis, without superimposed pyelonephritis Referrals: [facility] [Primary Care Provider, Medical] - 1 Week Discharge Medications: Continued buprenorphine-naloxone 2-0.5 mg Film 1 film BUCCAL BID Rx Instructions: place 1 strip/tab under (each) side of tongue Discharge Orders: Discharge Order (Routine); Ordered 06/06/25 Ordered By: Darnell Houser Diet: Advance to usual diet Activity on Discharge: As tolerated Stand Alone Forms: Patient Portal Discharge page Print Language: Kuwaiti Care Plan Goals: As above Health Concerns: As above Plan of Treatment: Follow up outpatient urology Follow up with PCP within 1-2 weeks of discharge Encourage hydration with water Assessment: Haemodynamically stable for discharge. Primary etiology of patients presentation has been addressed. No acute issues of note delaying discharge home.
--- NOTE | 2025-06-06 13:39 | MHC.CM.PN ---
DP: PT HAS BEEN MEDICALLY CLEARED FOR DC HOME, NO SERVICES. PT HAS OWN RIDE HOME.
--- NOTE | 2025-06-06 15:37 | PC.NURSE ---
spoke with pt and family prior to d/c. pt was educated upon d/c. pt's suboxone taken from pharmacy and given to pt upon d/c.
== END 2025-06-06 15:08 | disposition home or self-care (01) ==
LOC: HO.ED 17:55 → HO.EDOVER 18:06 → HO.S3 06-05 07:38
PROVIDERS: Physician Assistant Medical; Urology; Admitting Provider Internal Medicine; Emergency Provider Emergency Medicine; Visit Provider Hospitalist
PROC: 0TJ98ZZ Inspection of Ureter, Via Natural or Artificial Opening Endoscopic (ICD-10-PCS; CPT 52351; principal; 2025-06-05 16:40)
DX: N13.2 Hydronephrosis with renal and ureteral calculous obstruction (principal); N39.0 Urinary tract infection, site not specified; R10.13 Epigastric pain; R11.2 Nausea with vomiting, unspecified; R53.81 Other malaise
CPT/HCPCS: 52332; 36415; 74176; 80053; 81001; 83690; 83735; 85025; 87040; 87086; 96361; 96374; 96375; 96376; 99221; 99285; C1894; C2617; J0696; J1171; J1885; J1956; J2003; J2250; J2270; J2405; J2704; J3010; J7120; Q9967

== ENCOUNTER → 2025-06-04 14:12 | Outpatient (BNV) | payer OTHER, SELFPAY | PROVIDERS: Emergency Provider Emergency Medicine; Visit Provider Radiology Diagnostic Radiology | DX: N13.2 Hydronephrosis with renal and ureteral calculous obstruction (principal) | CPT/HCPCS: 74176 ==

== ENCOUNTER → 2025-06-04 17:56 | Outpatient (BNV) | payer OTHER, SELFPAY | PROVIDERS: Admitting Provider Internal Medicine; Emergency Provider Emergency Medicine; Visit Provider Internal Medicine | DX: N20.1 Calculus of ureter (principal); N13.30 Unspecified hydronephrosis; R11.0 Nausea | CPT/HCPCS: 99222; 99232 ==

== ENCOUNTER → 2025-06-04 17:56 | Outpatient (BNV) | payer MEDICAID, SELFPAY | PROVIDERS: Admitting Provider Internal Medicine; Emergency Provider Emergency Medicine; Visit Provider Urology | DX: N13.2 Hydronephrosis with renal and ureteral calculous obstruction (principal) | CPT/HCPCS: 52332; 74420; 99222 ==

== ENCOUNTER 2025-06-07 08:25 | Emergency (ER) | payer MEDICAID, SELFPAY ==
[2025-06-07 08:29] VITALS: BP 124/90; PULSE 102; O2SAT 96
--- NOTE | 2025-06-07 08:30 | ED_ITS ---
HPI - General Adult General Chief complaint: Urogenital-Male Stated complaint: Rt flank pain Time Seen by Provider: 06/07/25 08:29 Source: patient and EMS Mode of arrival: EMS Limitations: no limitations History of Present Illness ED Provider: Kelly Florian PA-C HPI narrative: Patient is a 40 year old assigned male at with a history of nephrolithiasis, OUD on Suboxone 2mg BID, presenting to the emergency department for hematuria and right flank pain s/p stent placement on 06/05/[address] Rodriguez for right hydronephrosis and proximal right hydroureter with obstructing 0.3 cm stone in the proximal right ureter. Patient states that he is still experiencing hematuria, which he was told by Dr. Rodriguez is normal, but his pain is uncontrollable. Patient states that he was discharged yesterday from the hospital and since then his pain has been progressively getting worse. Patient describes the pain as severe, 10/10, and stabbing on his right flank. Patient denies any fevers, chills, chest pain, abdominal pain, changes to bowel function, or any other symptoms at this time. Related Data Home Medications ?Medication ?Instructions ?Recorded ?Confirmed buprenorphine 2 mg-naloxone 0.5 mg 1 film buccal BID 0 06/05/25 06/05/25 sublingual film Previous Rx's ?Medication ?Instructions ?Recorded tamsulosin 0.4 mg capsule 0.4 mg PO BEDTIME #14 caps 0 06/06/25 oxycodone 10 mg tablet 10 mg PO Q8H PRN breakthroug h pain 06/07/25 #7 tabs Allergies Allergy/AdvReac Type Severity Reaction Status Date / Time No Known Allergies (No Known Allergy Verified 06/07/25 08:33 Allergies*) Review of Systems 2 Constitutional: Constitutional: Reports as per HPI Eyes: Eyes: Reports as per HPI ENT: Reports as per HPI Cardiovascular: Cardiovascular: Reports as per HPI Respiratory: Respiratory: Reports as per HPI Gastrointestinal: Gastrointestinal: Reports as per HPI Genitourinary: Genitourinary: Reports as per HPI Musculoskeletal: Musculoskeletal: Reports as per HPI Integumentary/Breasts: Skin/Breast: Reports as per HPI Neurologic: Reports as per HPI Psychiatric: Psychiatric: Reports as per HPI Endocrine: Endocrine: Reports as per HPI Hematologic/Lymphatic: Hematologic/Lymphatic: Reports as per HPI Allergic/Immunologic: Allergic/Immunologic: Reports as per HPI [facility] Past Medical History Attestation statement: The following information was validated with the patient. Source: old records reviewed and nursing notes reviewed Medical History Epigastric abdominal pain Hydronephrosis concurrent with and due to calculi of kidney and ureter Hydronephrosis Kidney stones Surgical History No pertinent past surgical history Social History Social History Household Members: Family Housing: House Do you presently have visiting nurse or other home services: No Patient Tobacco Use Status: Former Tobacco user Smoked in Last 30 Days: No Use of substances other than those prescribed or required for medical reasons: No Advance Directives: No Advance Directives Information Provided: Yes Do you have a plan to hurt others: No Plan service: No Physical Exam ED Vital Signs: Vital Signs - 24 hr 06/07/25 08:31 06/07/25 08:44 06/07/25 10:43 Temperature 98.2 F Pulse Rate 120 H 71 Respiratory Rate 18 22 H 18 Blood Pressure 100/68 Pulse Oximetry 95 95 Oxygen Delivery Method Room Air Room Air 06/07/25 11:23 Temperature 97.9 F Pulse Rate 89 Respiratory Rate 16 Blood Pressure 108/71 Pulse Oximetry 100 Oxygen Delivery Method Room Air BMI result Body Mass Index 23.7 Const General: cooperative, no acute distress, alert and awake Nutritional Appearance: well nourished Orientation/consciousness: patient oriented x3 HENMT Head: Yes normal to inspection and Yes atraumatic Ears: hearing grossly normal bilaterally and external ears normal General nose exam: Normal external nose present, no nasal discharge noted and no epistaxis Face and sinus: Yes normal facial exam, No abrasion and No laceration Mouth: Normal oral and palatal mucosa present, no drooling and no muffled voice Eyes General: appearance normal, both eyes and all related structures Periorbital: periorbital findings normal Eyelids: Yes eyelids normal Conjunctivae: conjunctivae normal Pupils: Equal, round and reactive pupils present EOM: EOMs intact bilaterally Neck Neck: Yes normal visual inspection and Yes full ROM Resp Effort & Inspection: normal respiratory effort and able to speak in complete sentences GI Other: diffuse pain Palpation (GI): Soft to palpation and not firm Auscultation: normal bowel sounds Neuro General: patient oriented x3, moves all extremities and CN's II-XI intact bilaterally Cranial nerves: Yes Equal, round and reactive pupils present Cognition (Neuro): normal cognition Extrem General: Yes normal to inspection, Yes full ROM and Yes capillary refill normal Psych Appearance: grossly normal Mental Status: mental status grossly normal Affect: normal affect Attitude: cooperative Thought process: Normal thought process present Thought content: Normal thought content present Insight: Good insight present (Psych) Medications Administered Discontinued Medications Generic Name Dose Route Start Last Admin Trade Name Oxana PRN Reason Stop Dose Admin Hydromorphone HCl 1 mg 06/07/25 08:35 06/07/25 08:44 Hydromorphone Hcl 1 Mg/Ml Syringe IVPUSH 06/07/25 08:36 1 mg ONCE ONE Administration Protocol Naloxone HCl 8 mg 06/07/25 11:07 06/07/25 11:25 Naloxone Hcl Nasal Take Home 4 Mg [place] NOSTRILALT 06/07/25 11:08 8 mg ONCE ONE Administration Ondansetron HCl 4 mg 06/07/25 08:35 06/07/25 08:44 Ondansetron Hcl 4 Mg/2 Ml Vial IVPUSH 06/07/25 08:36 4 mg ONCE ONE Administration Medical Decision Making Medical Decision Making [facility] Narrative: Patient is a 40 year old assigned male at with a history of nephrolithiasis, OUD on Suboxone 2mg BID, presenting to the emergency department for hematuria and right flank pain s/p ureteral stent placement on 06/05/2025. Patient's physical exam was as noted in the physical exam portion of this note. Patient's blood work was unremarkable. Patient's urine is consistent with what it should be post stent placement. I explained my physical exam findings as well as all test results to the patient. I answered all questions asked by the patient. Patient received IV dilaudid which, upon re-evaluation, he stated it helped his symptoms significantly. Given the patient's baseline suboxone use and uncontrolled pain, I consulted with the addiction / recovery team. They were able to connect with the patient's prescribing clinic and together, through shared decision making, we determined that discharging the patient on 10mg Oxycodone for break through pain and having him continue his normal suboxone with tylenol + ibuprofen would be the most appropriate course of treatment for this patient. Patient discharged with Narcan to take home given his new prescription for oxycodone. I stressed the importance of the patient taking his medication as directed (either prescribed or as the over the counter packaging recommends). I stressed the importance of the patient following up with his primary care provider. I stressed the importance of the patient returning to the emergency department immediately if his symptoms were to worsen or if he were to develop any dizziness, shortness of breath, difficulty breathing, chest pain, blurry vision, loss of vision, nausea, vomiting, abdominal pain, fever, chills, back pain, or any other complaints. Patient verbalized agreement and understanding with this treatment plan and discharge. Differential Diagnosis Differential Diagnoses: The differential diagnosis associated with the presentation includes Intractable pain Flank pain Hematuria Stone stricture Admission/Observation Consideration of admission/observation: Escalation of care including admission/observation considered Patient would have been admitted to the hospital had his work up had any findings where hospital admission was appropriate and his clinical presentation warranted hospital admission. 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 ) Lab Data [facility] Lab Attestation statement: I reviewed the patient's lab results. My interpretation of these results are in the MDM Rationale portion of this note. 06/07/25 08:40 06/07/25 08:40 Labs: Lab Results 06/07/25 06/07/25 Range/Units 08:40 10:51 WBC 9.2 (4.8-10.8) X10*3/uL RBC 5.13 (4.60-5.80) X10*6/uL Hgb 13.2 L (14.0-18.0) g/dl Hct 38.7 L (42.0-52.0) % MCV 75.4 L (80.0-98.0) fL MCH 25.7 L (27.0-33.0) pg MCHC 34.1 (31.0-36.0) g/dl RDW 12.8 (11.0-16.0) % Plt Count 334 (160-400) X10*3/uL MPV 8.3 L (9.4-12.4) fL Immature Gran % (Auto) 0.2 (0.0-0.4) % Neut % (Auto) 48.4 (45-73) % Lymph % (Auto) 39.5 (20-40) % [place] % (Auto) 9.6 (2-11) % Eos % (Auto) 1.5 (0-4) % Baso % (Auto) 0.8 (0-2) % Lymph # (Auto) 3.6 (1.2-4.9) X10*3/uL [place] # (Auto) 0.9 (0.1-1.2) X10*3/uL Eos # (Auto) 0.1 (0.0-0.4) X10*3/uL Baso # (Auto) 0.1 (0.0-0.2) X10*3/uL Abs Immat Gran (auto) 0.02 (0.00-0.03) X10*3/uL Absolute Neuts (auto) 4.5 (2.0-8.3) x10*3/uL Absolute Nucleated RBC 0.000 (0.0-0.012) X10*3/uL Nucleated RBC % (auto) 0.0 (0.0-0.2) /100WBC Sodium 143 (135-145) mmol/L Potassium 3.2 L (3.3-5.1) mmol/L Chloride 105 (96-108) mmol/L Carbon Dioxide 27 (22-29) mmol/L Anion Gap 14 (12-20) BUN 4 L (9-16) mg/dL Creatinine 0.87 (0.5-1.4) mg/dL Estim Creat Clear Calc 121.4 Estimated GFR > 60 Random Glucose 120 H (60-115) mg/dL Calcium 9.0 (8.4-10.2) mg/dL Magnesium 1.7 (1.6-2.6) mg/dL Total Bilirubin 0.5 (0.0-1.0) mg/dL AST 19 (5-37) U/L ALT 9 (0-40) U/L Alkaline Phosphatase 119 H (39-117) U/L Total Protein 6.5 (6.5-8.0) g/dL Albumin 4.1 (3.5-5.0) g/dL Urine Color BROWN Urine Appearance Turbid Urine pH 7.0 (5.0-9.0) Ur Specific [place] 1.020 (1.005-1.025) Urine Protein 100 (2+) H (Neg-Trace) mg/dL Urine Glucose (UA) Negative (Negative) mg/dL Urine Ketones 40 (Negative) mg/dL Urine Blood Large (3+) H (Negative) Urine Nitrite Positive H (Negative) Ur Leukocyte Esterase Small (1+) H (Negative) Urine RBC >20 H (0-2) /HPF Urine WBC 6-10 (0-5) /HPF Ur Squamous Epith Cells 0-2 (0-2) /HPF Urine Bacteria None Seen (None Seen) Hyaline Casts 0-2 (0-2) /LPF Prescription Management I considered prescription management with: Pain Medication (patient prescribed pain medication as noted in the MDM Rationale portion of this note. ) Critical Care Time Critical Care Time Critical Care Time: Yes Total Critical Care Time: 32 Attestation: I spent 32 minutes of Critical Care Time with this patient. This does not include time spent on separately reported billable procedures. Discharge Plan Discharge Clinical Impression: Acute flank pain Patient Disposition: Home, Self-Care Instructions: Flank Pain (ED) Additional Instructions: Please take your medication as prescribed. Use the oxycodone as needed for breakthrough pain. Follow up with urology as scheduled. IF you are prescribed home medications and/or you are taking over the counter medications at home - it is very important you continue to do so as prescribed / directed unless told otherwise. Follow up with your primary care provider. Return to the emergency department immediately if your symptoms worsen or if you develop any numbness, tingling, dizziness, shortness of breath, difficulty breathing, chest pain, blurry vision, loss of vision, nausea, vomiting, abdominal pain, fever, chills, back pain, or any other complaints. Please see the information below about our Patient Portal. If you are not yet enrolled in the [facility] Patient Portal, you will receive an enrollment email invitation following your visit to any [facility] care setting. You may also self-enroll in the Patient Portal by visiting our website: [email or web address] The following information is required to access the Patient Portal: - Your [facility] [place] Number - Your personal home email address (must match what is in your electronic medical record, Registration staff can assist with this) - Name - Date of Capabilities of the Patient Portal: - Message some providers - View upcoming appointments - Access your health summary, medical history, and visit history - View current conditions and allergies - View procedure and lab results - View your medications, including guidelines, side effects, and precautions - Complete pre-appointment questionnaires requested by your provider - Ready summary reports of your office visits and procedures To access the Patient Portal Mobile [employer], follow these directions: - Search [employer] in the [employer] Store or [employer] Store - Download the [employer] - Search for [facility] - Enter your login/password Prescriptions: New oxycodone 10 mg tablet 10 mg PO Q8H PRN (Reason: breakthrough pain) Qty: 7 0RF Rx Instructions: Partial Fill upon patient request. No Action buprenorphine-naloxone 2-0.5 mg Film 1 film BUCCAL BID Rx Instructions: place 1 strip/tab under (each) side of tongue tamsulosin 0.4 mg capsule 0.4 mg PO BEDTIME Qty: 14 0RF Referrals: [facility] [Provider Group] - 06/13/25 Referral Note: Please present to this appointment BEFORE 1:30pm Melissa Edwards MD [Primary Care Provider, Internal Medicine] Interventions: ED Discharge Assessment Last Done: 06/07/25 11:23 Discharge Date/Time: 06/07/25 11:36 Print Language: Greenlandic
[2025-06-07 08:31] VITALS: PULSE 120; RESP 18; O2SAT 95; BMI 23.7
[2025-06-07 08:44] VITALS: RESP 22
[2025-06-07 08:45] LABS: MANUAL DIFF FLAG NO
[2025-06-07 08:47] LABS: Hematocrit 38.7 % (42.0-52.0); Hemoglobin 13.2 g/dl (14.0-18.0); Imm Gran Abs Auto 0.02 X10*3/uL (0.00-0.03); Imm Gran Pct Auto 0.2 % (0.0-0.4); Lymphocytes Absolute Auto 3.6 X10*3/uL (1.2-4.9); Mean Corpuscular HGB Conc 34.1 g/dl (31.0-36.0); Mean Corpuscular Hemoglobin 25.7 pg (27.0-33.0); Mean Corpuscular Volume 75.4 fL (80.0-98.0); NRBC Abs Auto 0.000 X10*3/uL (0.0-0.012); NRBC Pct Auto 0.0 /100WBC (0.0-0.2); Platelet Count 334 X10*3/uL (160-400); Red Blood Count 5.13 X10*6/uL (4.60-5.80); White Blood Count 9.2 X10*3/uL (4.8-10.8)
[2025-06-07 09:07] LABS: Alanine Aminotransferase 9 U/L (0-40); Albumin Level 4.1 g/dL (3.5-5.0); Alkaline Phosphatase 119 U/L (39-117); Anion Gap 14 (12-20); Aspartate Amino Transferase 19 U/L (5-37); Blood Urea Nitrogen 4 mg/dL (9-16); Calcium 9.0 mg/dL (8.4-10.2); Carbon Dioxide 27 mmol/L (22-29); Chloride 105 mmol/L (96-108); Creatinine Clr Calc Pharmacy 121.4; Estimated Glomerular Filt Rate > 60; Magnesium 1.7 mg/dL (1.6-2.6); Potassium 3.2 mmol/L (3.3-5.1); Sodium 143 mmol/L (135-145); Total Protein 6.5 g/dL (6.5-8.0)
--- OUTSIDE RECORDS SUMMARY | 2025-06-07 10:14 | XMS_ITS | Clinical Summary ---
Author Organization [employer] Address [address] [facility] 7[address] [place] [address] Care Team Providers Care Group Sales Representative Name Role Phone Melissa Edwards MD Primary [...] EST): Doing well on Suboxone.\ FU at [facility]. Order HIV/hepatitis profile Overweight (BMI 25.0-29.9) 07/18/2024 [...] Procedure Name Priority Date/Time Associated Diagnosis Comments FL GUIDANCE IN OR Routine 06/05/2025 5:4 3 PM EDT URINALYSIS, COMPLETE, WITH REFLEX TO CULTURE Routine 06/04/2025 4:[address] ABDOMEN PELVIS WO CONTRAST Routine 06/04/2025 4:20 PM EDT LIPASE Routine 06/04/2025 1:18 PM EDT MAGNESIUM Routine [...] Recently Relevant to Health Maintenance Results * FL Guidance in OR (06/05/2025 5:43 PM EDT) Anatomical Region Laterality Modality X-Ray Angiograph y 06/05/2025 5:43 PM EDT Narrative 06/06/2025 7:04 AM EDT [address] [address] Fluoroscopy Report Signed Patient: Rick Elias MR#: [id number] : 1985 Acct:[id number] Age/Sex: 40 / M ADM Date: 06/04/25 Loc: HO.S3 352-[address]: Velasquez Holden MD Ordering Physician: Joss Rodriguez MD Date of Service: 06/05/25 Procedure(s): FL guidance in OR Accession Number(s): [id number] cc: Joss Rodriguez MD; [facility] Reason for Exam: STENT RIGHT EXAMINATION: FL GUIDANCE ONLY HISTORY: STENT RIGHT COMPARISON: Correlation is made with a CT of the abdomen and pelvis without contrast dated 06/04/2025. TECHNIQUE: Fluoroscopy time: 0.7 minutes. Cumulative Dose: 8.64 mGy. DAP: 2.35 mGym2 Images: 6. FINDINGS: Fluoroscopic spot films of the right abdomen demonstrate placement of a nephroureteral stent. FL/FL guidance in OR IMPRESSION: Fluoroscopy during procedure. Please see procedure report for additional information. Electronically signed by: Pino Thompson MD 06/06/2025 07:01 AM EDT RP Dictated By: Pino Thompson MD Signed By: <Electronically signed by Pino Thompson MD in OV> 06/06/25 0701 DD/ 1743 TD/TT: 06/05/25 1756 Leather Currier: Procedure Note Donotuseinterpreter, Image - 06/06/2025 [place] [address] Fluoroscopy Report Signed Patient: Rick Elias OMR#: [id number] : 1985Acct:[id number] Age/Sex: 40 / MADM Date: 06/04/25 Loc: HO.S3 352-[address]: Velasquez Holden MD Ordering Physician: Joss Rodriguez MD Date of Service: 06/05/25 Procedure(s): FL guidance in OR Accession Number(s): [id number] cc: Joss Rodriguez MD; [facility] Reason for Exam: STENT RIGHT EXAMINATION: FL GUIDANCE ONLY HISTORY: STENT RIGHT COMPARISON: Correlation is made with a CT of the abdomen and pelvis without contrast dated 06/04/2025. TECHNIQUE: Fluoroscopy time: 0.7 minutes. Cumulative Dose: 8.64 mGy. DAP: 2.35 mGym2 Images: 6. FINDINGS: Fluoroscopic spot films of the right abdomen demonstrate placement of a nephroureteral stent. FL/FL guidance in OR IMPRESSION: Fluoroscopy during procedure. Please see procedure report for additional information. Electronically signed by: Pino Thompson MD 06/06/2025 07:01 AM EDT Dictated By: Pino Thompson MD Signed By: <Electronically signed by Pino Thompson MD in OV> 06/06/25 0701 DD/ 1743 TD/TT: 06/05/25 1756 Leather Currier: us [facility] External Provider IMG IR PROCEDURES Edited Result - Final * (ABNORMAL) Urinalysis, Complete, with Reflex to Culture (06/04/2025 4:34 PM EDT) Color Urine Other(A) [facility] Appearance Urine Cloudy [facility] PH 6.5 5.0 - 9.0 [facility] Glucose Urine UA Negative Negative mg/dL [facility] Urine Blood Large (3+)(A) Negative [facility] Specific [place] - Urine >=1.030(H) 1.005 - 1.025 [facility] Urine Protein 300 (3+)(A) Neg-Trace mg/dL [facility] Urine Ketones >=80 Negative mg/dL [facility] Nitrite Urine Positive(A) Negative [facility] Leukocyte Esterase Urine Trace(A) Negative [facility] RBC Urine >20(A) 0 - 2 /HPF [facility] Urine WBC 0-5 0 - 5 /HPF [facility] Urine Squamous Epithelial Cell 3-5 0 - 2 /HPF [facility] CALCIUM OXALATE CRYSTAL, UR Present [facility] Urine Bacteria None Seen None Seen [facility] Hyaline Casts, Urine 11-20 0 - 2 /LPF [facility] 06/04/2025 4:34 PM EDT 06/04/2025 4:36 PM EDT Narrative [facility] - 06/04/2025 4:54 PM EDT Urine, Clean Catch us Generic External Data Provider LAB URINE ORDERAB LES Final Result [facility] [address] [place] [phone] * CT Abdomen Pelvis w/o Contrast (06/04/2025 4:20 PM EDT) Anatomical Region Laterality Modality Body, Pelvis, Abdomen Computed T omography 06/04/2025 4:20 PM EDT Narrative 06/04/2025 4:21 PM EDT [address] [address] [address] Scan Report Signed with Addenda Patient: Rick Elias MR#: [id number] : 1985 Acct:[id number] Age/Sex: 40 / M ADM Date: 06/04/25 Loc: HO.ED Attending Dr: Ordering Physician: Jovanna Cook Date of Service: 06/04/25 Procedure(s): CT abdomen pelvis wo IV con Accession Number(s): [id number] cc: [facility]; Jovanna Cook Report Number: [id number]: Total DLP = 522.00 mGy-cm Reason for Exam: right flank pain hx stones ADDENDUM This document has been electronically signed by: Barron Smith MD on 06/04/2025 16:20:04 ADDENDUM: This report was discussed with Joey Nugent on Jun 04, 2025 16:30:00 EDT. This document has been electronically signed by: Antonio Wu on 06/04/2025 16:30:56 Addendum Dictated By: Barron Smith MD Addendum Signed By: <Electronically signed by Barron Smith MD in OV> 06/04/25 163 Addendum Cosigned By: DD/ TD/TT: 06/04/25 CLINICAL HISTORY: right flank pain hx stones CT abdomen and pelvis without contrast Comparison: CT/REG/SR - CT ABDOMEN PELVIS WITHOUT IV CONTRAST - 08/08/22 04:30 EST Findings: The lung bases are clear. Gynecomastia. Right hydronephrosis and proximal right hydroureter with proximal right ureter obstructing nephrolith, 0.3 cm, axial image number 58 of 119. No bowel obstruction, pneumoperitoneum, or pneumatosis. The prostate is within normal limits. The appendix is within normal limits. No acute fracture. Mild osteopenia. IMPRESSION: 1. Right hydronephrosis and proximal right hydroureter with obstructing 0.3 cm in the proximal right ureteral nephrolith. 2. Gynecomastia. This document has been electronically signed by: Barron Smith MD on 06/04/2025 16:20:04 Dictated By: Barron Smith MD Signed By: <Electronically signed by Barron Smith MD in OV> 06/04/251619 DD/ 19 TD/TT: 06/04/251619 Leather Currier: Procedure Note Donotuseinterpreter, Image - 06/04/[address] [place] [address] [address] Scan Report Signed with Janine Patient: Rick Elias OMR#: [id number] : 1985Acct:[id number] Age/Sex: 40 / MADM Date: 06/04/25 Loc: .ED Attending Dr: Ordering Physician: Jovanna Cook Date of Service: 06/04/25 Procedure(s): CT abdomen pelvis wo IV con Accession Number(s): [id number] cc: [facility]; Jovanna Cook Report Number: [id number]: Total DLP = 522.00 mGy-cm Reason for Exam: right flank pain hx stones ADDENDUM This document has been electronically signed by: Barron Smith MD on 06/04/2025 16:20:04 ADDENDUM: This report was discussed with Joey Nugent on Jun 04, 2025 16:30:00 EDT. This document has been electronically signed by: Antonio Wu on 06/04/2025 16:30:56 Addendum Dictated By: Barron Smith MD Addendum Signed By: <Electronically signed by MD Honey in OV> 06/04/25 1631 Addendum Cosigned By: DD/ TD/TT: 06/04/25 CLINICAL HISTORY: right flank pain hx stones CT abdomen and pelvis without contrast Comparison: CT/REG/SR - CT ABDOMEN PELVIS WITHOUT IV CONTRAST - 08/08/22 04:30 EST Findings: The lung bases are clear. Gynecomastia. Right hydronephrosis and proximal right hydroureter with proximal right ureter obstructing nephrolith, 0.3 cm, axial image number 58 of 119. No bowel obstruction, pneumoperitoneum, or pneumatosis. The prostate is within normal limits. The appendix is within normal limits. No acute fracture. Mild osteopenia. IMPRESSION: 1. Right hydronephrosis and proximal right hydroureter with obstructing 0.3 cm in the proximal right ureteral nephrolith. 2. Gynecomastia. This document has been electronically signed by: Barron Smith MD on 06/04/2025 16:20:04 Dictated By: Barron Smith MD Signed By: <Electronically signed by Barron Smith MD in OV> 06/04/251619 DD/ 19 TD/TT: 06/04/251619 Leather Currier: [facility] External Provider IMG CT PROCEDURES Edited Result - Final * (ABNORMAL) CBC auto differential (06/04/2025 1:18 PM EDT) White Blood Count 11.5(H) 4.8 - 10.8 X10*3/uL [facility] Red Blood Count 6.17(H) 4.60 - 5.80 X10*6/uL [facility] Hemoglobin 15.6 14.0 - 18.0 g/dl [facility] Hematocrit 46.5 42.0 - 52.0 % [facility] Mean Corpuscular Volume 75.4(L) 80.0 - 98.0 fL [facility] Mean Corpuscular Hemoglobin 25.3(L) 27.0 - 33.0 pg [facility] Mean Corpuscular HGB Conc 33.5 31.0 - 36.0 g/dl [facility] Red Cell Distribution Width 12.9 11.0 - 16.0 % [facility] Platelet Count 419(H) 160 - 400 X10*3/uL [facility] Mean Platelet Volume 8.6(L) 9.4 - 12.4 fL [facility] Neutrophils Percent Auto 51.0 45 - 73 % [facility] Imm Gran Pct Auto 0.3 0.0 - 0.4 % [facility] Lymphocytes Percent Auto 36.7 20 - 40 % [facility] Monocytes Percent Auto 8.4 2 - 11 % [facility] Eosinophils Percent Auto 2.7 0 - 4 % [facility] Basophils Percent Auto 0.9 0 - 2 % [facility] NRBC Pct Auto 0.0 0.0 - 0.2 /100WBC [facility] Neutrophils Absolute Auto 5.9 2.0 - 8.3 x10*3/uL [facility] Imm Gran Abs Auto 0.03 0.00 - 0.03 X10*3/uL [facility] Lymphocytes Absolute Auto 4.2 1.2 - 4.9 X10*3/uL [facility] Monocytes Absolute Auto 1.0 0.1 - 1.2 X10*3/uL [facility] Eosinophils Absolute Auto 0.3 0.0 - 0.4 X10*3/uL [facility] Basophils Absolute Auto 0.1 0.0 - 0.2 X10*3/uL [facility] NRBC Abs Auto 0.000 0.0 - 0.012 X10*3/uL [facility] 06/04/2025 1:18 PM EDT 06/04/2025 1:30 PM EDT us Generic External Data Provider LAB BLOOD ORDERAB LES Final Result [facility] [address] [place] [phone] * Magnesium (06/04/2025 1:18 PM EDT) Pathologist [facility] Magnesium 1.9 1.6 - 2.6 mg/dL [facility] 06/04/2025 1:18 PM EDT 06/04/2025 1:30 PM EDT Generic External Data Provider LAB BLOOD ORDERAB LES Final Result Performing Organization Address [facility]/ZIP Co de Phone Number [facility] [address] [place] [phone] * Lipase (06/04/2025 1:18 PM EDT) Pathologist [facility] Lipase 25 8 - 78 U/L [facility] 06/04/2025 1:18 PM EDT 06/04/2025 1:30 PM EDT Generic External Data Provider LAB BLOOD ORDERAB LES Final Result Performing Organization Address [facility] Co de Phone Number [facility] [address] [place] [phone] * (ABNORMAL) Comprehensive Metabolic Panel (06/04/2025 1:18 PM EDT) [facility] Sodium 139 135 - 145 mmol/L [facility] Potassium 3.9 3.3 - 5.1 mmol/L [facility] Comment:Slight Hemolysis.Int erpret result with caution. Chloride 103 96 - 108 mmol/L [facility] Carbon Dioxide 22 22 - 29 mmol/L [facility] Anion Gap 18 12 - 20 [facility] Urea Nitrogen (BUN) 12 9 - 16 mg/dL [facility] Creatinine, Serum 0.98 0.5 - 1.4 mg/dL [facility] Creatinine Clr Calc Pharmacy 107.7 [facility] Comment:eGFR (calculated fro m the MDRD study equation) and eCrCl(calculated from the Cockcroft-Gault equation) are based ondifferent parameters and may not yield comparable results.If eCrCl result is absurd, please check patient'sheight/weight. Estimated Glomerular Filt Rate >60 [facility] Comment:Chronic Kidney Disea se: Estimated GFR < 60 mL/min/1.20s4Qgmxiv Kidney Disease: Estimated GFR < 15 mL/min/1.73m2 Glucose 150(H) 60 - 115 mg/dL [facility] Calcium 9.6 8.4 - 10.2 mg/dL [facility] Bilirubin, Total 0.7 0.0 - 1.0 mg/dL [facility] Aspartate Amino Transferase 28 5 - 37 U/L [facility] Comment:Slight Hemolysis.Int erpret result with caution. Alanine Aminotransferase 19 0 - 40 U/L [facility] Total Protein 7.8 6.5 - 8.0 g/dL [facility] Albumin Level 4.6 3.5 - 5.0 g/dL [facility] Alkaline Phosphatase 157(H) 39 - 117 U/L [facility] 06/04/2025 1:18 PM EDT 06/04/2025 1:30 PM EDT us Generic External Data Provider LAB BLOOD ORDERAB LES Final Result [facility] [address] [place] [phone] * (ABNORMAL) Lipid Panel with Reflex to Direct LDL (07/28/2024 9:25 AM EST) Triglycerides 145 <150 mg/dL [facility] Comment:Desirable Triglyceri de: less than 150 mg/dLBorderline High Triglyceride 150-199 mg/dLHigh Triglyceride: 200-499 mg/dLVery High Triglyceride: greater than or equal to 5OO mg/dL Cholesterol 175 <200 mg/dL [facility] Comment:Desirable Cholestero l: less than 200 mg/dLBorderline High Cholesterol: 200-239 mg/dLHigh Cholesterol: greater than 239 mg/dL LDL Cholesterol Calculated 112(H) <100 mg/dL [facility] Comment:Desirable LDL: less than 100 mg/dLNear Optimal/Above Optimal LDL: 110- 129 mg/dLBorderline High LDL: 130-159 mg/dLHigh LDL: 160-189 mg/dLVery High LDL: greater than or equal to 190 mg/dL HDL Cholesterol 34(L) >40 mg/dL [facility] Comment:Desirable HDL: great er than 40 mg/dL Note: This HDL assay may give artificially low results in patients with liver disease. Blood 07/28/2024 9:25 AM EST 07/28/2024 11:10 AM EST Melissa Edwards MD LAB BLOOD ORDERABLES Fin al Result Performing Organization Address City/[facility] Co de Phone Number [facility] [address] [place] [phone] * Hepatitis Panel, General (07/28/2024 9:25 AM EST) Hepatitis A IgM Nonreactive Nonreactive [facility] Comment:IgM antibodies to KATE V not detected; does not exclude earlyacute or recovered HAV infection. ~Hepatitis B Surface Antibody REACTIVE Nonreactive [facility] Comment:REACTIVE: > 11.99 mI U/mL Hepatitis B Core Antibody Nonreactive Nonreactive [facility] Hepatitis C Antibody Nonreactive Nonreactive [facility] Comment:Antibodies to HCV no t detected; does not exclude early acuteHCV infection. Hepatitis B Surface Ag Negative Negative [facility] Blood 07/28/2024 9:25 AM EST 07/28/2024 11:10 AM EST us Melissa Edwards MD LAB BLOOD ORDERABLES Fin al Result Performing Organization Address City/[facility]/ZIP Co de Phone Number [facility] [address] [place] [phone] * HIV-1/2 Antigen and Antibodies, Fourth Generation, with Reflexes (07/28/2024 9:25 AM EST) HIV AB/AG Nonreactive Nonreactive [facility] Comment:HIV-1 p24 Ag and/or HIV-1/HIV-2 Ab not detected.A test result that is nonreactive does not exclude thepossibility of exposure to or infection with HIV-1 and/orHIV-2. Nonreactive results in this assay for individualswith prior exposure to HIV-1 and/or HIV-2 may be due toantigen and antibody levels that are below the limit ofdetection of this assay.The [employer] HIV Ag/Ab Combo assay result andsupplemental assay results should be interpreted inconjunction with the patient's clinical presentation,history and other laboratory results. If the results areinconsistent with clinical evidence, additional testing issuggested to confirm the result. Blood Venous blood specimen / Unknown 07/28/2024 9:25 AM EST 07/28/2024 11:10 AM EST us Melissa Edwards MD LAB BLOOD ORDERABLES Fin al Result [facility] [address] [place] [phone] from Last 3 Months or Most Recently Relevant to Health Maintenance Insurance [facility] Care Teams Group Sales Representative Relationship Specialty Start Date End Date Melissa Edwards MD [address] [place] [phone] PCP - General Internal Medicine 07/18/24
--- OUTSIDE RECORDS SUMMARY | 2025-06-07 10:14 | XMS_ITS | Encounter Summary ---
Author Organization [employer] Address [address] [place] [address] Care Team Providers Care Jewelry Technician Name Role Phone Melissa Edwards MD Primary Care Provider + Encounter Details Date Type Department Care Team ([facility] st Contact Info) Description 01/02/2025 Telephone [facility] [address] [place] [address] Ashwini Ciera, OD [address] [place] [phone] Social History Tobacco Use Types Packs/Day Years [...] documented as of this encounter Care Teams Jewelry Technician Relationship Specialty Start Date End Date Melissa Edwards MD [address] [place] [phone] PCP - General Internal Medicine 07/18/24 documented as of this encounter
--- OUTSIDE RECORDS SUMMARY | 2025-06-07 10:14 | XMS_ITS | Encounter Summary ---
Author Organization [employer] Address [address] [place] [address] Care Team Providers Care Nocturnist Physician Name Role Phone Melissa Edwards MD Primary Care Provider + Encounter Details Date Type Department Care Team ([facility] st Contact Info) Description 06/04/2025 Orders [...] WO CONTRAST Routine 06/04/2025 4:20 PM EDT CBC WITH AUTO DIFFERENTIAL Routine 06/04/2025 1:18 PM EDT MAGNESIUM Routine 06/04/2025 1:18 PM EDT LIPASE Routine 06/04/2025 1:18 PM EDT COMPREHENSIVE METABOLIC PANEL Routine 06/04/2025 1:18 PM EDT documented in this encounter Results * FL Guidance in OR (06/05/2025 5:43 PM EDT) Anatomical Region Laterality Modality X-Ray Angiograph y 06/05/2025 5:43 PM EDT Narrative 06/06/2025 7:04 AM EDT [address] [address] Fluoroscopy Report Signed Patient: Rick Elias MR#: [id number] : 1985 Acct:[id number] Age/Sex: 40 / M ADM Date: 06/04/25 Loc: HO.S3 352-[address]: Velasquez Holden MD Ordering Physician: Joss Rodriguez MD Date of Service: 06/05/25 Procedure(s): FL guidance in OR Accession Number(s): [id number] cc: Joss Rodriguez MD; [facility] Reason for Exam: STENT RIGHT EXAMINATION: [...] Thompson MD in OV> 06/06/25 0701 DD/ 42 TD/TT: 06/05/251755 Support Services Tech: Procedure Note Donotuseinterpreter, Image - 06/06/2025 [place] [address] Fluoroscopy Report Signed Patient: Rick Elias OMR#: [id number] : 1985Acct:[id number] Age/Sex: 40 / MADM Date: 06/04/25 Loc: HO.S3 352-[address]: Velasquez Holden MD Ordering Physician: Joss Rodriguez MD Date of Service: 06/05/25 Procedure(s): FL guidance in OR Accession Number(s): [id number] cc: Joss Rodriguez MD; [facility] Reason for Exam: STENT RIGHT EXAMINATION: [...] Thompson MD in OV> 06/06/25 0701 DD/ 174 TD/TT: 06/05/25 175 Support Services Tech: us [facility] External Provider IMG IR PROCEDURES Edited Result - Final * (ABNORMAL) Urinalysis, Complete, with Reflex to Culture (06/04/2025 4:34 PM EDT) Color Urine Other(A) [facility] Appearance Urine Cloudy [facility] PH 6.5 5.0 - 9.0 [facility] Glucose Urine UA Negative Negative mg/dL [facility] Urine Blood Large (3+)(A) Negative [facility] Specific [place] - Urine >=1.030(H) 1.005 - 1.025 [facility] Urine Protein 300 (3+)(A) Neg-Trace mg/dL [facility] Urine Ketones >=80 Negative mg/dL [facility] Nitrite Urine Positive(A) Negative [facility] Leukocyte Esterase Urine Trace(A) Negative [facility] RBC Urine >20(A) 0 - 2 /HPF [facility] Urine WBC 0-5 0 - 5 /HPF [facility] Urine Squamous Epithelial Cell 3-5 0 - 2 /HPF [facility] CALCIUM OXALATE CRYSTAL, UR Present [facility] Urine Bacteria None Seen None Seen [facility] Hyaline Casts, Urine 11-20 0 - 2 /LPF [facility] 06/04/2025 4:34 PM EDT 06/04/2025 4:36 PM EDT Narrative [facility] - 06/04/2025 4:54 PM EDT Urine, Clean Catch us Generic External Data Provider LAB URINE ORDERAB LES Final Result [facility] [address] [place] [phone] * CT Abdomen Pelvis w/o Contrast (06/04/2025 4:20 PM EDT) Anatomical Region Laterality Modality Body, Pelvis, Abdomen Computed T omography 06/04/2025 4:20 PM EDT Narrative 06/04/2025 4:21 PM EDT [address] [address] [address] Scan Report Signed with Addenda Patient: Rick Elias MR#: [id number] : 1985 Acct:[id number] Age/Sex: 40 / M ADM Date: 06/04/25 Loc: HO.ED Attending Dr: Ordering Physician: Jovanna Cook Date of Service: 06/04/25 Procedure(s): CT abdomen pelvis wo IV con Accession Number(s): [id number] cc: [facility]; Jovanna Cook Report Number: [id number]: Total DLP = 522.00 mGy-cm Reason for [...] by Barron Smith MD in OV> 06/04/25 1620 DD/ 1620 TD/TT: 06/04/25 1620 Support Services Tech: Procedure Note Donotuseinterpreter, Image - 06/04/[address] [place] [address] [address] Scan Report Signed with Addenda Patient: Rick Elias OMR#: [id number] : 1985Acct:[id number] Age/Sex: 40 / MADM Date: 06/04/25 Loc: .ED Attending Dr: Ordering Physician: Jovanna Cook Date of Service: 06/04/25 Procedure(s): CT abdomen pelvis wo IV con Accession Number(s): [id number] cc: [facility]; Jovanna Cook Report Number: [id number]: Total DLP = 522.00 mGy-cm Reason for [...] <Electronically signed by MD Honey in OV> 06/04/251630 Addendum Cosigned By: DD/ TD/TT: 06/04/25 CLINICAL [...] in OV> 06/04/251619 DD/ 19 TD/TT: 06/04/251619 Support Services Tech: [facility] External Provider IMG CT PROCEDURES Edited Result - Final * Lipase (06/04/2025 1:18 PM EDT) Lipase 25 8 - 78 U/L [facility] 06/04/2025 1:18 PM EDT 06/04/2025 1:30 PM EDT Generic External Data Provider LAB BLOOD ORDERAB LES Final Result [facility] [address] [place] [address] [phone] * Magnesium (06/04/2025 1:18 PM EDT) Magnesium 1.9 1.6 - 2.6 mg/dL [facility] 06/04/2025 1:18 PM EDT 06/04/2025 1:30 PM EDT us Generic External Data Provider LAB BLOOD ORDERAB LES Final Result [facility] [address] [place] [phone] * (ABNORMAL) Comprehensive Metabolic Panel (06/04/2025 1:18 PM EDT) Sodium 139 135 - 145 mmol/L [facility] Potassium 3.9 3.3 - 5.1 mmol/L [facility] Comment:Slight Hemolysis.Int erpret result with caution. Chloride 103 96 - 108 mmol/L [facility] Carbon Dioxide 22 22 - 29 mmol/L [facility] Anion Gap 18 12 - 20 [facility] Urea Nitrogen (BUN) 12 9 - 16 mg/dL [facility] Creatinine, Serum 0.98 0.5 - 1.4 mg/dL [facility] Creatinine Clr Calc Pharmacy 107.7 [facility] Comment:eGFR (calculated fro m the MDRD study equation) and eCrCl(calculated from the Cockcroft-Gault equation) are based ondifferent parameters and may not yield comparable results.If eCrCl result is absurd, please check patient'sheight/weight. Estimated Glomerular Filt Rate >60 [facility] Comment:Chronic Kidney Disea se: Estimated GFR < 60 mL/min/[id number] Kidney Disease: Estimated GFR < 15 mL/min/1.73m2 Glucose 150(H) 60 - 115 mg/dL [facility] Calcium 9.6 8.4 - 10.2 mg/dL [facility] Bilirubin, Total 0.7 0.0 - 1.0 mg/dL [facility] Aspartate Amino Transferase 28 5 - 37 U/L [facility] Comment:Slight Hemolysis.Int erpret result with caution. Alanine Aminotransferase 19 0 - 40 U/L [facility] Total Protein 7.8 6.5 - 8.0 g/dL [facility] Albumin Level 4.6 3.5 - 5.0 g/dL [facility] Alkaline Phosphatase 157(H) 39 - 117 U/L [facility] 06/04/2025 1:18 PM EDT 06/04/2025 1:30 PM EDT us Generic External Data Provider LAB BLOOD ORDERAB LES Final Result [facility] [address] [place] [phone] * (ABNORMAL) CBC auto differential (06/04/2025 1:18 PM EDT) White Blood Count 11.5(H) 4.8 - 10.8 X10*3/uL [facility] Red Blood Count 6.17(H) 4.60 - 5.80 X10*6/uL [facility] Hemoglobin 15.6 14.0 - 18.0 g/dl [facility] Hematocrit 46.5 42.0 - 52.0 % [facility] Mean Corpuscular Volume 75.4(L) 80.0 - 98.0 fL [facility] Mean Corpuscular Hemoglobin 25.3(L) 27.0 - 33.0 pg [facility] Mean Corpuscular HGB Conc 33.5 31.0 - 36.0 g/dl [facility] Red Cell Distribution Width 12.9 11.0 - 16.0 % [facility] Platelet Count 419(H) 160 - 400 X10*3/uL [facility] Mean Platelet Volume 8.6(L) 9.4 - 12.4 fL [facility] Neutrophils Percent Auto 51.0 45 - 73 % [facility] Imm Gran Pct Auto 0.3 0.0 - 0.4 % [facility] Lymphocytes Percent Auto 36.7 20 - 40 % [facility] Monocytes Percent Auto 8.4 2 - 11 % [facility] Eosinophils Percent Auto 2.7 0 - 4 % [facility] Basophils Percent Auto 0.9 0 - 2 % [facility] NRBC Pct Auto 0.0 0.0 - 0.2 /100WBC [facility] Neutrophils Absolute Auto 5.9 2.0 - 8.3 x10*3/uL [facility] Imm Gran Abs Auto 0.03 0.00 - 0.03 X10*3/uL [facility] Lymphocytes Absolute Auto 4.2 1.2 - 4.9 X10*3/uL [facility] Monocytes Absolute Auto 1.0 0.1 - 1.2 X10*3/uL [facility] Eosinophils Absolute Auto 0.3 0.0 - 0.4 X10*3/uL [facility] Basophils Absolute Auto 0.1 0.0 - 0.2 X10*3/uL [facility] NRBC Abs Auto 0.000 0.0 - 0.012 X10*3/uL [facility] 06/04/2025 1:18 PM EDT 06/04/2025 1:30 PM EDT us Generic External Data Provider LAB BLOOD ORDERAB LES Final Result Performing Organization Address City/State/[facility] Co de Phone Number [facility] [address] [place] [address] [phone] documented in this encounter Visit Diagnoses Not on filedocumented in this encounter Additional Health Concerns Assessment Noted Time PHQ-9 Depression Total Score: 22 024 4:41 PM EDT documented as of this encounter Care Teams Nocturnist Physician Relationship Specialty Start Date End Date Melissa Edwards MD [address] [place] [phone] PCP - General Internal Medicine 07/18/24 documented as of this encounter
--- OUTSIDE RECORDS SUMMARY | 2025-06-07 10:14 | XMS_ITS | Encounter Summary ---
Author Organization [employer] Address [address] [place] [address] [address]t [place] [address] Care Team Providers Care Furnace Firer Name Role Phone Melissa Edwards MD Primary Care Provider + Reason for Visit * Reason Onset Date Comments New Patient 05/21/2023 Encounter Details Date Type Department Care Team ([facility] st Contact Info) Description 05/21/2023 Telephone [facility] [address] [place] [address] Onofre Pennington MD [address] [place] [address] New Patient Social History Tobacco Use Types [...] been transfer 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 EFFECTIVE SINCE 05/21/2023 documented in this encounter Plan of Treatment Not on file documented as of this encounter Visit Diagnoses Not on filedocumented in this encounter Care Teams Furnace Firer Relationship Specialty Start Date End Date Melissa Edwards MD [address] [place] [address] PCP - General Internal Medicine 07/18/24 documented as of this encounter
[2025-06-07 10:43] VITALS: BP 100/68; PULSE 71; RESP 18; TEMP 36.8; O2SAT 95
[2025-06-07 11:02] LABS: Appearance Urine Turbid; Glucose Urine UA Negative (Negative); PH 7.0 (5.0-9.0); Specific Gravity - Urine 1.020 (1.005-1.025); UMIC TRIGGER UACC YES
[2025-06-07 11:13] LABS: UACC Culture Trigger YES
--- NOTE | 2025-06-07 11:14 | HO.ADDICTCON ---
History of Present Illness Date of Service: 06/07/2025 Chief Complaint: Rt flank pain Reason for Consult: acute pain with current MOUD in place Sources of Information: patient interviewed and chart reviewed HPI Narrative: Patient is a 40 year old male with history of OUD in sustained remission, who presents to [facility] ED c/o flank pain following recent admission for kidney stones , with renal stent placed on 06/05. Consult requsted as patient is currently prescribed buprenorphine for OUD, seeking recs on pain management plan. Patient seen in ED, he is awake, alert, visibly uncomfortable Reports he is prescribed Suboxone 2mg BID, and has been engaged in treatment with [facility] for a few years. Denies any opiate use. Reporting significant pain, kenia when he has to urinate. t/w spoke with provider at [facility] to ensure they were aware of recent procedure and need for pain management they are in agreement with plan for oxycodone or anything else that may be needed to manage pain. Medical Evaluation Reviewed: Yes Review of Systems Constitutional: Reports as per HPI Diagnostics Vital Signs (24Hr): Vital Signs - 24 hr 06/07/25 08:31 06/07/25 08:44 06/07/25 10:43 Temperature 98.2 F Pulse Rate 120 H 71 Respiratory Rate 18 22 H 18 Blood Pressure 100/68 Pulse Oximetry 95 95 Oxygen Delivery Method Room Air Room Air BMI result Body Mass Index 23.7 Labs 06/07/25 08:40 06/07/25 08:40 Labs: Laboratory Results - last 48 hr 06/07/25 06/07/25 08:40 10:51 WBC 9.2 RBC 5.13 Hgb 13.2 L Hct 38.7 L MCV 75.4 L MCH 25.7 L MCHC 34.1 RDW 12.8 Plt Count 334 MPV 8.3 L Immature Gran % (Auto) 0.2 Neut % (Auto) 48.4 Lymph % (Auto) 39.5 [place] % (Auto) 9.6 Eos % (Auto) 1.5 Baso % (Auto) 0.8 Lymph # (Auto) 3.6 [place] # (Auto) 0.9 Eos # (Auto) 0.1 Baso # (Auto) 0.1 Abs Immat Gran (auto) 0.02 Absolute Neuts (auto) 4.5 Absolute Nucleated RBC 0.000 Nucleated RBC % (auto) 0.0 Sodium 143 Potassium 3.2 L Chloride 105 Carbon Dioxide 27 Anion Gap 14 BUN 4 L Creatinine 0.87 Estim Creat Clear Calc 121.4 Estimated GFR > 60 Random Glucose 120 H Calcium 9.0 Magnesium 1.7 Total Bilirubin 0.5 AST 19 ALT 9 Alkaline Phosphatase 119 H Total Protein 6.5 Albumin 4.1 Urine Color BROWN Urine Appearance Turbid Urine pH 7.0 Ur Specific [place] 1.020 Urine Protein 100 (2+) H Urine Glucose (UA) Negative Urine Ketones 40 Urine Blood Large (3+) H Urine Nitrite Positive H Ur Leukocyte Esterase Small (1+) H Urine RBC >20 H Urine WBC 6-10 Ur Squamous Epith Cells 0-2 Urine Bacteria None Seen Hyaline Casts 0-2 Mental Status Exam Mental Status Exam Patient Appearance: Appropriate Level of Consciousness: Awake and Appropriate Patient Behavior: Appropriate Affect Description: Anxious Speech Pattern: Clear Judgement: Good Medications Allergies Allergies Allergy/AdvReac Type Severity Reaction Status Date / Time No Known Allergies (No Known Allergy Verified 06/07/25 08:33 Allergies*) Assessment & Plan Assessment & Plan (1) Opioid use disorder, moderate, in sustained remission: Status: Acute Code(s): F11.21 - Opioid dependence, in remission Assessment and Plan: continue buprenorphine as prescribed 2mg BID Oxycodone 10mg PRN pain has an appt with [facility] on 06/13--advised to present to appt before 1:30pm t/w called urology office to ensure patient had upcoming appt and made RN aware of patient's ED visit related to pain. Pt to call office should he require additional pain management before scheduled appt in 2 weeks. Total time managing care of this patient today _40___ minutes. [facility] Past Medical History Medical History Epigastric abdominal pain Hydronephrosis concurrent with and due to calculi of kidney and ureter Hydronephrosis Kidney stones Surgical History Surgical History No pertinent past surgical history Social History Social History Household Members: Family Housing: House Do you presently have visiting nurse or other home services: No Patient Tobacco Use Status: Former Tobacco user Smoked in Last 30 Days: No Use of substances other than those prescribed or required for medical reasons: No Advance Directives: No Advance Directives Information Provided: Yes Do you have a plan to hurt others: No Plan service: No
[2025-06-07 11:23] VITALS: BP 108/71; PULSE 89; RESP 16; TEMP 36.6; O2SAT 100
[2025-06-07] MEDS: Naloxone HCl Nasal TAKE HOME 4 MG SPRAY 8 MG NOSTRILALT (11:25)
== END 2025-06-07 11:36 | disposition home or self-care (01) ==
PROVIDERS: Physician Assistant Medical; Emergency Provider Emergency Medicine; PCP Internal Medicine
DX: R10.9 Unspecified abdominal pain (principal); R31.9 Hematuria, unspecified; F11.21 Opioid dependence, in remission
CPT/HCPCS: 36415; 80053; 81001; 81003; 83735; 85025; 87086; 96374; 96375; 99284; J1171; J2405

== ENCOUNTER → 2025-06-07 08:46 | Outpatient (BNV) | payer OTHER, SELFPAY | PROVIDERS: Emergency Provider Emergency Medicine; PCP Internal Medicine; Visit Provider Nurse Practitioner Psychiatric/Mental Health | DX: F11.21 Opioid dependence, in remission (principal) | CPT/HCPCS: 99282 ==

== ENCOUNTER 2025-08-21 16:35 | Outpatient (REF) | payer MEDICAID, SELFPAY ==
--- OUTSIDE RECORDS SUMMARY | 2025-08-21 14:00 | XMS_ITS | Encounter Summary ---
Author Organization [employer] Address [address] [place] [address] Care Team Providers Care Jewelry Facer Name Role Phone Melissa Edwards MD Primary Care Provider + Reason for Visit * Reason Comments UTI Encounter Details Date Type Department Care Team ([facility] st Contact Info) Description 08/21/2025 2:00 PM EST Office Visit [facility] [address] [place], [place] [phone] UTI symptoms Social History Tobacco Use Types Packs/Day Years Used Date Smoking Tobacco: Never Smokeless Tobacco: Never Tobacco Cessation:Counseling Given: Not Answered Alcohol Use Standard Drinks/Week Comments Never 0 [...] Male 05/21/2023 4:51 PM EDT Sexual Orientation Straight 08/21/2025 12 :39 PM EST documented as of this encounter Last Filed Vital Signs Vital Sign Reading Time Taken Comments Blood Pressure 135/83 08/21/2025 2:21 PM EST Pulse 76 08/21/2025 2:21 PM EST Temperature 36.7 C (98 F) 08/21/2025 2:21 PM EST Respiratory Rate 16 08/21/2025 2:21 PM EST Oxygen Saturation 98% 08/21/2025 2:21 PM EST Inhaled Oxygen Concentration - - Weight 82.1 kg (181 lb) 08/21/2025 2:21 PM EST Height 179.1 cm (5' 10.5 ) 08/21/2025 2:21 PM ES T Body Mass Index 25.6 08/21/2025 2:21 PM EST documented in this encounter Plan of Treatment Upcoming Encounters Date Type Department Care Team (Late st Contact Info) Description 11/03/2025 9:45 AM EST Office Visit [facility] [address] [place] [address] Melissa Edwards MD [address] [place] [address] Scheduled Orders Name Type Priority Associated Diagnoses Orde r Schedule Culture, Urine, Routine Microbiology Routine UTI symptoms Ordered: 08/21/2025 Chlamydia/Trichomonas /Neisseria gonorrhoeae, PCR, Urine Lab Routine UTI symptoms Ordered: 08/21/2025 Mycoplasma/Ureaplasma Panel Microbiology Routine UTI symptoms Expected: 08/21/2025 (Approximate), Expires: 08/21/2026 documented as of this encounter Procedures Procedure Name Priority Date/Time Associated Diagnosis Comments POCT URINALYSIS DIPSTICK Routine 08/21/2025 2:28 PM EST UTI symptoms documented in this encounter Results * (ABNORMAL) POCT urinalysis dipstick manually resulted (CPT 78937) (08/21/2025 2:28 PM EST) Color, UA Brown Clarity, UA Cloudy Glucose, UA Negative Bilirubin, UA Trace Ketones, UA Positive Comment:Trace Spec Grav, UA 1.030 Blood, UA Positive(A) Negative, None Detected Comment:Large pH, UA 6.0 Protein, UA Many Comment:300Mg Urobilinogen, UA 0.2 Leukocytes, UA Few 15(A) Negative, Rare, Trace, 1+ (17), 2+ (35), 3+ (70), Trace (15) Nitrite, UA Negative Negative, None Detected Appearance, UA OK Urine (Urine, Random) 08/21/2025 2:[address] [facility] STUDIO MUSICIAN POINT OF CARE TEST ENTER/EDIT O RDERABLES Final Result documented in this encounter Visit Diagnoses Diagnosis UTI symptoms documented in this encounter Additional Health Concerns Assessment Noted Time PHQ-9 Depression Total Score: 22 024 4:41 PM EDT documented as of this encounter Care Teams Jewelry Facer Relationship Specialty Start Date End Date Melissa Edwards MD [address] [place] [phone] PCP - General Internal Medicine 07/18/24 documented as of this encounter
--- OUTSIDE RECORDS SUMMARY | 2025-08-21 18:47 | XMS_ITS | Encounter Summary ---
Author Organization [employer] Address [address] [address] [place] [address] Care Team Providers Care Bleach Tester Name Role Phone Melissa Edwards MD Primary Care Provider + Encounter Details Date Type Department Care Team (Latest Contact Info) Description 08/21/2025 Travel Social History Tobacco Use Types Packs/Day Years [...] PM EST documented as of this encounter Plan of Treatment Upcoming Encounters Date Type Department Care Team (Late st Contact Info) Description 11/03/2025 9:45 AM EST Office Visit [facility] [address] [place] [address] Melissa Edwards MD [address] [place] [address] documented as of this encounter Visit Diagnoses Not on filedocumented in this encounter Additional Health Concerns Assessment Noted Time PHQ-9 Depression Total Score: 22 024 4:41 PM EDT documented as of this encounter Care Teams Bleach Tester Relationship Specialty Start Date End Date Melissa Edwards MD [address] [place] [phone] PCP - General Internal Medicine 07/18/24 documented as of this encounter
--- OUTSIDE RECORDS SUMMARY | 2025-08-21 18:48 | XMS_ITS | Encounter Summary ---
Author Organization [employer] Address [address] [place] [address] [address] [place] [address] Care Team Providers Care Filler And Trimmer Name Role Phone Melissa Edwards MD Primary Care Provider + Reason for Visit * Reason Onset Date Comments New Patient 05/21/2023 Encounter Details Date Type Department Care Team (Late st Contact Info) Description 05/21/2023 Telephone [facility]INE [address] [place] [phone] nOofre Pennington MD [address] [place] [address] New Patient Social History Tobacco Use Types Packs/Day Years Used Date Smoking Tobacco: Never Assessed Sex and Gender Information Value Date Recorded Sex Assigned at Male 05/21/2023 4:51 PM EDT Legal Sex Male 4:49 PM EDT Gender Identity Male 05/21/2023 4:51 PM EDT Sexual Orientation Straight 08/21/2025 12 :39 PM EST documented as of this encounter Miscellaneous Notes * Telephone Encounter - Rafaela Underwood - 05/21/2023 4:53 PM EDT Pt has been transfer over to wait list for 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 EFFECTIVE SINCE 05/21/2023 documented in this encounter Plan of Treatment Upcoming Encounters Date Type Department Care Team (Late st Contact Info) Description 11/03/2025 9:45 AM EST Office Visit [facility] [address] [place] [phone] Melissa Edwards MD [address] [place] [address] documented as of this encounter Visit Diagnoses Not on filedocumented in this encounter Care Teams Filler And Trimmer Relationship Specialty Start Date End Date Melissa Edwards MD [address] [place] [address] PCP - General Internal Medicine 07/18/24 documented as of this encounter
--- OUTSIDE RECORDS SUMMARY | 2025-08-21 18:48 | XMS_ITS | Encounter Summary ---
Author Organization [employer] Address [address] [place] [address] Care Team Providers Care Hospital Coordinator Name Role Phone Melissa Edwards MD Primary Care Provider + Encounter Details Date Type Department Care Team ([facility] Contact Info) Description 01/02/2025 Telephone [facility] [address] [place] [address] Ciera Maradiaga, OD [address] [place] [address] Social History Tobacco Use Types Packs/Day Years [...] Description 11/03/2025 9:45 AM EST Office Visit [facility] [address] [place] [phone] Melissa Edwards MD [address] [place] [phone] documented as of this encounter Visit Diagnoses Not on filedocumented in this encounter Additional Health Concerns Assessment Noted Time PHQ-9 Depression Total Score: 22 024 4:41 PM EDT documented as of this encounter Care Teams Hospital Coordinator Relationship Specialty Start Date End Date Melissa Edwards MD [address] [place] [phone] PCP - General Internal Medicine 07/18/24 documented as of this encounter
--- OUTSIDE RECORDS SUMMARY | 2025-08-21 18:48 | XMS_ITS | Clinical Summary ---
Author Organization [employer] Address [address] [place] [address] Care Team Providers Care Veteran Appeals Reviewer Name Role Phone Melissa Edwards MD Primary Care Provider + Allergies No known active allergies Medications * This document contains information received from the source organization and may not represent a complete record from that organization. albuterol 108 (90 Base) MCG/ACT inhaler Inhale 2 puffs every 6 (six) hours if needed for wheezing. 18 g 07/18/2024 Active nitrofurantoin, macrocrystal-mo nohydrate, (Macrobid) 100 MG capsuleIndicati ons:UTI symptoms Take 1 capsule (100 mg) by mouth every 12 (twelve) hours for 7 days. 14 capsule 08/21/2025 5 Active Active Problems Problem Noted Date Diagnosed Date Uncomplicated opioid dependence (CMS/HCC) 2024 Assessment & Plan (09/23/2024 4:21 PM EST): Doing well on Suboxone.\ FU at [facility]. Order HIV/hepatitis profile Overweight (BMI 25.0-29.9) 07/18/2024 Mild intermittent asthma without complication Assessment & Plan (09/23/2024 4:19 PM EST): Well controlled, continue albuterol inh prn only Agreed to Influenza IZ, declined covid booster. Encounters Date Type Department Care Team Description 08/21/2025 2:00 PM EST Office Visit [facility] [address] [place], [place] [phone] UTI symptoms 08/21/2025 Travel 06/16/2025 Results Follow-Up [facility] [address] [place] [phone] Abdomen Pelvis w/o Contrast 06/04/2025 Orders Only GENERIC EXTERNAL DATA DEPARTMENT [...] is your housing situation today? I have juaniyesenia prince 07/18/[address] you [...] Orientation Straight 08/21/2025 12 :39 PM EST Last Filed Vital Signs Vital Sign Reading [...] Mass Index 25.6 08/21/2025 2:21 PM EST Plan of Treatment Upcoming Encounters Date Type Department Care Team (Late st Contact Info) Description 11/03/2025 9:45 AM EST Office Visit [facility] [address] [place] [address] Melissa Edwards MD [address] [place] [address] Health Maintenance Due Date Last Done Comments [...] 07/18/2024 , 07/18/2024 COVID-19 Vaccine (1 - 2024-2 6 season) 2025 Influenza Vaccine (#1) 2025 07/18/2024 SDOH Screening 07/18/2025 07/18/2024 Tobacco Screening 08/21/2026 08/21/2025 Lipid Panel 07/28/2029 07/28/2024 Zoster Vaccines (1 [...] Routine 08/21/2025 2:28 PM EST UTI symptoms URINALYSIS, COMPLETE, WITH REFLEX TO CULTURE Routine 06/07/2025 10:51 AM EDT CULTURE, URINE, ROUTINE Routine 06/07/2025 12:00 AM EDT FL GUIDANCE IN OR Routine 06/05/2025 5:4 [...] Relevant to Health Maintenance Results * (ABNORMAL) POCT urinalysis dipstick manually resulted (CPT 20470) (08/21/2025 2:28 PM EST) Color, UA Brown [...] Urine (Urine, Random) 08/21/2025 2:28 PM EST Adelia Campa NP POINT OF CARE TEST ENTER/EDIT O RDERABLES Final Result * (ABNORMAL) Urinalysis, Complete, with Reflex to Culture (06/07/2025 10:51 AM EDT) Only the most recent of2 resultswithin the time period is included. Color Urine BROWN [facility] Appearance Urine Turbid [facility] PH 7.0 5.0 - 9.0 [facility] Glucose Urine UA Negative Negative mg/dL [facility] Urine Blood Large (3+)(A) Negative [facility] Specific [place] - Urine 1.020 1.005 - 1.025 [facility] Urine Protein 100 (2+)(A) Neg-Trace mg/dL [facility] Urine Ketones 40 Negative mg/dL [facility] Nitrite Urine Positive(A) Negative [facility] Leukocyte Esterase Urine Small (1+)(A) Negative [facility] RBC Urine >20(A) 0 - 2 /HPF [facility] Urine WBC 6-10 0 - 5 /HPF [facility] Urine Squamous Epithelial Cell 0-2 0 - 2 /HPF [facility] Urine Bacteria None Seen None Seen [facility] Hyaline Casts, Urine 0-2 0 - 2 /LPF [facility] 06/07/2025 10:5 1 AM EDT 06/07/2025 10:54 AM EDT Narrative [facility] - 06/07/2025 11:14 AM EDT [id number], Clean Catch us Generic External Data Provider LAB URINE ORDERAB LES Final Result Performing Organization Address [facility]/ZIP Co de Phone Number [facility] [address] [place] [phone] * Culture, Urine, Routine (06/07/2025 12:00 AM EDT) Urine Urine specimen obtained by clean catch procedure / Unknown 06/07/2025 06/07/2025 Comment:[facility] - 06/08/2025 12:29 PM EDT Urine Culture No growth. Specimen Source: Urine clean catch us Generic External Data Provider LAB MICROBIOLOGY - GENERAL ORDERABLES Final Result Performing Organization Address [facility] Co de Phone Number [facility] [address] [place] [phone] * FL Guidance in OR (06/05/2025 5:43 PM EDT) Anatomical Region Laterality Modality X-Ray Angiograph y 06/05/2025 5:4 3 PM EDT Narrative 06/06/2025 7:04 AM EDT [address] [address] Fluoroscopy Report Signed Patient: Rick Elias MR#: [id number] : 1985 Acct:[id number] Age/Sex: 40 / M ADM Date: 06/04/25 Loc: S3 352-[address]: Velasquez Holden MD Ordering Physician: Joss Rodriguez MD Date of Service: 06/05/25 Procedure(s): FL guidance in OR Accession Number(s): [id number] cc: Joss Rodriguez MD; [facility] Reason for Exam: STENT RIGHT EXAMINATION: [...] 06/06/25 0701 DD/ 1743 TD/TT: 06/05/25 1756 Process Plant Operator: Procedure Note Donotuseinterpreter, Image - 06/06/[address] [address] Fluoroscopy Report Signed Patient: Rick Elias OMR#: [id number] : 1985Acct:[id number] Age/Sex: 40 / MADM Date: 06/04/25 Loc: HOLaurelS3 352-[address]: Velasquez Holden MD Ordering Physician: Joss Rodriguez MD Date of Service: 06/05/25 Procedure(s): FL guidance in OR Accession Number(s): [id number] cc: Joss Rodriguez MD; [facility] Reason for Exam: STENT RIGHT EXAMINATION: [...] OV> 06/06/25 0701 DD/ 42 TD/TT: 06/05/251755 Process Plant Operator: [facility] External Provider IMG IR PROCEDURES Edited Result - Final * CT Abdomen Pelvis w/o Contrast (06/04/2025 4:20 PM EDT) Anatomical Region Laterality Modality Body, Pelvis, Abdomen Computed T omography 06/04/2025 4:20 PM EDT Narrative 06/04/2025 4:21 PM EDT [place] [address] CT Scan Report Signed with Janine Patient: Rick Elias MR#: [id number] : 1985 Acct:[id number] Age/Sex: 40 / M ADM Date: 06/04/25 Loc: HO.ED Attending Dr: Ordering Physician: Jovanna Cook Date of Service: 06/04/25 Procedure(s): CT abdomen pelvis wo IV con Accession Number(s): [id number] cc: [facility]; Jovanna Cook Report Number: [id number]: Total DLP = 522.00 mGy-cm Reason for [...] signed by Barron Smith MD in OV> 06/04/251630 Addendum Cosigned By: DD/ [...] in OV> 06/04/251619 DD/ 19 TD/TT: 06/04/251619 Process Plant Operator: Procedure Note Rafaelter, Image - 06/04/[address] [address] [address] Scan Report Signed with Addenda Patient: Rick Elias OMR#: [id number] : 1985Acct:[id number] Age/Sex: 40 / MADM Date: 06/04/25 Loc: HO.ED Attending Dr: Ordering Physician: Jovanna Cook Date of Service: 06/04/25 Procedure(s): CT abdomen pelvis wo IV con Accession Number(s): [id number] cc: [facility]; Jovanna Cook Report Number: [id number]: Total DLP = 522.00 mGy-cm Reason for [...] 06/04/25 1620 DD/ 1620 TD/TT: 06/04/25 1620 Process Plant Operator: [facility] External Provider IMG CT PROCEDURES Edited Result - Final * (ABNORMAL) CBC auto differential (06/04/2025 1:18 PM EDT) White Blood Count 11.5(H) 4.8 - 10.8 X10*3/uL [facility] Red Blood Count 6.17(H) 4.60 - 5.80 X10*6/uL [facility] Hemoglobin 15.6 14.0 - 18.0 g/dl [facility] Hematocrit 46.5 42.0 - 52.0 % [facility] Mean Corpuscular Volume 75.4(L) 80.0 - 98.0 fL [facility] Mean Corpuscular Hemoglobin 25.3(L) 27.0 - 33.0 pg [facility] Mean Corpuscular HGB Conc 33.5 31.0 - 36.0 g/dl [facility] Red Cell Distribution Width 12.9 11.0 - 16.0 % [facility] Platelet Count 419(H) 160 - 400 X10*3/uL [facility] Mean Platelet Volume 8.6(L) 9.4 - 12.4 fL [facility] Neutrophils Percent Auto 51.0 45 - 73 % [facility] Imm Gran Pct Auto 0.3 0.0 - 0.4 % [facility] Lymphocytes Percent Auto 36.7 20 - 40 % [facility] Monocytes Percent Auto 8.4 2 - 11 % [facility] Eosinophils Percent Auto 2.7 0 - 4 % [facility] Basophils Percent Auto 0.9 0 - 2 % [facility] NRBC Pct Auto 0.0 0.0 - 0.2 /100WBC [facility] Neutrophils Absolute Auto 5.9 2.0 - 8.3 x10*3/uL [facility] Imm Gran Abs Auto 0.03 0.00 - 0.03 X10*3/uL [facility] Lymphocytes Absolute Auto 4.2 1.2 - 4.9 X10*3/uL [facility] Monocytes Absolute Auto 1.0 0.1 - 1.2 X10*3/uL [facility] Eosinophils Absolute Auto 0.3 0.0 - 0.4 X10*3/uL [facility] Basophils Absolute Auto 0.1 0.0 - 0.2 X10*3/uL [facility] NRBC Abs Auto 0.000 0.0 - 0.012 X10*3/uL [facility] 06/04/2025 1:18 PM EDT 06/04/2025 1:30 PM EDT us Generic External Data Provider LAB BLOOD ORDERAB LES Final Result Performing Organization Address [facility]/ZIP Co de Phone Number [facility] [address] [place] [phone] * Magnesium (06/04/2025 1:18 PM EDT) Magnesium 1.9 1.6 - 2.6 mg/dL [facility] 06/04/2025 1:18 PM EDT 06/04/2025 1:30 PM EDT us Generic External Data Provider LAB BLOOD ORDERAB LES Final Result Performing Organization Address City/[facility]/ZIP Co de Phone Number [facility] [address] [place] [phone] * Lipase (06/04/2025 1:18 PM EDT) Lipase 25 8 - 78 U/L [facility] 06/04/2025 1:18 PM EDT 06/04/2025 1:30 PM EDT us Generic External Data Provider LAB BLOOD ORDERAB LES Final Result Performing Organization Address City/[facility]/ZIP Co de Phone Number [facility] [address] [place] [phone] * (ABNORMAL) Comprehensive Metabolic Panel (06/04/2025 1:18 PM EDT) Sodium 139 135 - 145 mmol/L [facility] Potassium 3.9 3.3 - 5.1 mmol/L [facility] Comment:Slight Hemolysis.Int erpret result with caution. Chloride 103 96 - 108 mmol/L [facility] Carbon Dioxide 22 22 - 29 mmol/L [facility] Anion Gap 18 12 - 20 [facility] Urea Nitrogen (BUN) 12 9 - 16 mg/dL [facility] Creatinine, Serum 0.98 0.5 - 1.4 mg/dL [facility] Creatinine Clr Calc Pharmacy 107.7 [facility] Comment:eGFR (calculated fro m the MDRD study equation) and eCrCl(calculated from the Cockcroft-Gault equation) are based ondifferent parameters and may not yield comparable results.If eCrCl result is absurd, please check patient'sheight/weight. Estimated Glomerular Filt Rate >60 [facility] Comment:Chronic Kidney Disea se: Estimated GFR < 60 mL/min/1.81m4Pxyflw Kidney Disease: Estimated GFR < 15 mL/min/1.73m2 Glucose 150(H) 60 - 115 mg/dL [facility] Calcium 9.6 8.4 - 10.2 mg/dL [facility] Bilirubin, Total 0.7 0.0 - 1.0 mg/dL [facility] Aspartate Amino Transferase 28 5 - 37 U/L [facility] Comment:Slight Hemolysis.Int erpret result with caution. Alanine Aminotransferase 19 0 - 40 U/L [facility] Total Protein 7.8 6.5 - 8.0 g/dL [facility] Albumin Level 4.6 3.5 - 5.0 g/dL [facility] Alkaline Phosphatase 157(H) 39 - 117 U/L [facility] 06/04/2025 1:18 PM EDT 06/04/2025 1:30 PM EDT us Generic External Data Provider LAB BLOOD ORDERAB LES Final Result Performing Organization Address [facility] Co de Phone Number [facility] [address] [place] [phone] * (ABNORMAL) Lipid Panel with Reflex to Direct LDL (07/28/2024 9:25 AM EST) Triglycerides 145 <150 mg/dL [facility] Comment:Desirable Triglyceri de: less than 150 mg/dLBorderline High Triglyceride 150-199 mg/dLHigh Triglyceride: 200-499 mg/dLVery High Triglyceride: greater than or equal to 5OO mg/dL Cholesterol 175 <200 mg/dL [facility] Comment:Desirable Cholestero l: less than 200 mg/dLBorderline High Cholesterol: 200-239 mg/dLHigh Cholesterol: greater than 239 mg/dL LDL Cholesterol Calculated 112(H) <100 mg/dL [facility] Comment:Desirable LDL: less than 100 mg/dLNear Optimal/Above Optimal LDL: 110- 129 mg/dLBorderline High LDL: 130-159 mg/dLHigh LDL: 160-189 mg/dLVery High LDL: greater than or equal to 190 mg/dL HDL Cholesterol 34(L) >40 mg/dL [facility] Comment:Desirable HDL: great er than 40 mg/dL Note: This HDL assay may give artificially low results in patients with liver disease. Blood 07/28/2024 9:25 AM EST 07/28/2024 11:10 AM EST us Melissa Edwards MD LAB BLOOD ORDERABLES Fin al Result Performing Organization Address [facility]/ZIP Co de Phone Number [facility] [address] [place] [phone] * Hepatitis Panel, General (07/28/2024 9:25 AM EST) Hepatitis A IgM Nonreactive Nonreactive [facility] Comment:IgM antibodies to KATE V not detected; does not exclude earlyacute or recovered HAV infection. ~Hepatitis B Surface Antibody REACTIVE Nonreactive [facility] Comment:REACTIVE: > 11.99 mI U/mL Hepatitis B Core Antibody Nonreactive Nonreactive [facility] Hepatitis C Antibody Nonreactive Nonreactive [facility] Comment:Antibodies to HCV no t detected; does not exclude early acuteHCV infection. Hepatitis B Surface Ag Negative Negative [facility] Blood 07/28/2024 9:25 AM EST 07/28/2024 11:10 AM EST us Melissa Edwards MD LAB BLOOD ORDERABLES Fin al Result Performing Organization Address [facility]/ZIP Co de Phone Number [facility] [address] [place] [phone] * HIV-1/2 Antigen and Antibodies, Fourth Generation, with Reflexes (07/28/2024 9:25 AM EST) HIV AB/AG Nonreactive Nonreactive [facility] Comment:HIV-1 p24 Ag and/or HIV-1/HIV-2 Ab not detected.A test result that is nonreactive does not exclude thepossibility of exposure to or infection with HIV-1 and/orHIV-2. Nonreactive results in this assay for individualswith prior exposure to HIV-1 and/or HIV-2 may be due toantigen and antibody levels that are below the limit ofdetection of this assay.The [employer] HIV Ag/Ab Combo assay result andsupplemental assay results should be interpreted inconjunction with the patient's clinical presentation,history and other laboratory results. If the results areinconsistent with clinical evidence, additional testing issuggested to confirm the result. Blood Venous blood specimen / Unknown 07/28/2024 9:25 AM EST 07/28/2024 11:10 AM EST us Melissa Edwards MD LAB BLOOD ORDERABLES Fin al Result Performing Organization Address [facility]/ZIP Co de Phone Number [facility] [address] [place] [phone] from Last 3 Months or Most Recently Relevant to Health Maintenance Insurance [facility] C3 Care Teams Veteran Appeals Reviewer Relationship Specialty Start Date End Date Melissa Edwards MD [address] [place] [phone] PCP - General Internal Medicine 07/18/24
== END 2025-08-21 16:36 | disposition home or self-care (01) ==
LOC: HO.HHCLNP 16:35
PROVIDERS: Visit Provider Nurse Practitioner
DX: R39.9 Unspecified symptoms and signs involving the genitourinary system (principal)
CPT/HCPCS: 87086